=== PATIENT | female | born 1955 | race Hispanic/Latino ===

== ENCOUNTER 2020-05-07 09:40 | Inpatient (IN) | payer OTHER, SELFPAY ==
[~2020-05-07] VITALS: Ht 147.3 cm; Wt 82.2 kg
[2020-05-07 10:51] LABS: BASOPHILS % (AUTO) 0.2 % (0.0-5.0); HEMATOCRIT 40.7 % (36-48); LYMPHOCYTES % (AUTO) 5.9 % (21.0-51.0); MEAN CORPUSCULAR HEMOGLOBIN 29.9 pg (27.0-33.0); MEAN CORPUSCULAR HGB CONC 33.2 g/dL (32.0-36.0); MONOCYTES % (AUTO) 4.3 % (3.0-13.0); NEUTROPHILS % (AUTO) 88.6 % (40.0-77.0); PLATELET COUNT (AUTO) 255 K/uL (130-400); RED BLOOD CELL COUNT(AUTO) 4.52 MIL/uL (4.00-5.50); RED CELL DISTRIBUTION WIDTH 13.7 % (11.0-15.5)
[2020-05-07 10:57] LABS: APPEARANCE,URINE Clear (CLEAR); BILIRUBIN,URINE Negative (NEGATIVE); COLOR,URINE Yellow (YELLOW); GLUCOSE, URINE (UA) Negative (NEGATIVE); KETONES,URINE Negative (NEGATIVE); LEUKOCYTE ESTERASE ,URINE Negative (NEGATIVE); NITRATE,URINE Negative (NEGATIVE); OCCULT BLOOD,URINE Negative (NEGATIVE); PH,URINE 6.5 (5.0-8.0); PROTEIN,URINE Negative (NEGATIVE)
[2020-05-07 11:01] LABS: INR 0.89 (0.85-1.15); PROTHROMBIN TIME 9.7 SEC (9.6-11.6)
[2020-05-07 11:08] LABS: CARBON DIOXIDE 25 mmol/L (21-32); CHLORIDE 101 mmol/L (101-111); CREATININE 0.6 mg/dL (0.5-1.5); GLOMERULAR FILTR. RATE CALC 108 mL/min (>60); GLUCOSE,RANDOM 120 mg/dL (70-105); POTASSIUM 3.6 mmol/L (3.5-5.1); SODIUM SERUM 139 mmol/L (136-145); UREA NITROGEN, BLOOD 10 mg/dL (7-18)
[2020-05-07 11:22] LABS: ALANINE AMINOTRANSFERASE 41 U/L (12-78); ALBUMIN 3.1 g/dL (3.5-5.0); ASPARTATE AMINOTRANSFERASE 58 U/L (10-37); BILIRUBIN,TOTAL 0.7 mg/dL (0.2-1.0); CREATINE KINASE, TOTAL 365 U/L (21-232); MYOGLOBIN 79 ng/mL (10-92); TOTAL PROTEIN, SERUM 8.1 g/dL (6.0-8.3); TROPONIN I < 0.04 ng/mL (0.00-0.06)
[2020-05-07] MEDS ORDERED: DEXAMETHASONE SOD PHOSPHATE 10MG/ML 1ML VIAL ONE (12:08)
[2020-05-07] MEDS ORDERED: ALBUTEROL INHALER 90MCG/INH IH ONE (12:08)
[2020-05-07] MEDS ORDERED: AZITHROMYCIN 500MG+NS 250ML 250 ML IV ONE (12:09)
[2020-05-07] MEDS ORDERED: CEFTRIAXONE SODIUM 1 GM ONE (12:09)
[2020-05-07] MEDS: CEFTRIAXONE SODIUM 1 GM IVP SCH (13:00)
[2020-05-07] MEDS ORDERED: DOXYCYCLINE 100MG+NS 250ML IV SCH (13:00)
[2020-05-07] MEDS ORDERED: ACETAMINOPHEN 325 MG TAB PO PRN ×2 (13:15)
[2020-05-07 13:47] LABS: ABG BASE EXCESS -2.1 mmol/L (-2.0-3.0); ABG HCO3 21.8 mmol/L (21.0-28.0); ABG OXYGEN SATURATION 90.6 % (95.0-99.0); ABG PCO2 35 mmHg (32-45)
[2020-05-07] MEDS ORDERED: METHYLPREDNISOLONE SOD SUCC 40MG/ML 1ML IVP SCH (14:00)
[2020-05-07] MEDS ORDERED: IOHEXOL-350 75 ML VIAL IV ONE (14:15)
[2020-05-07] MEDS ORDERED: HYDRALAZINE HCL 20 MG/ML VIAL IV PRN ×2 (16:00→17:00)
[2020-05-07] MEDS ORDERED: ONDANSETRON HCL 4 MG/2 ML VIAL IVP PRN ×2 (16:00→17:00)
[2020-05-07] MEDS ORDERED: ERGOCALCIFEROL (VITAMIN D2) 50,000 UNIT CAPSULE PO ONE (17:00)
[2020-05-07] MEDS ORDERED: LOPERAMIDE 1 MG/7.5 ML UDCUP PO PRN (17:00)
[2020-05-07] MEDS ORDERED: FUROSEMIDE 10 MG/ML 10ML VIAL IVP SCH (21:00)
[2020-05-07] MEDS ORDERED: METHYLPREDNISOLONE SOD SUCC 40MG/ML 1ML ONE (23:03)
[2020-05-07] MEDS ORDERED: ENOXAPARIN SODIUM 60 MG/0.6 ML SQ ONE (23:03)
[2020-05-07] MEDS ORDERED: ERGOCALCIFEROL (VITAMIN D2) 50,000 UNIT CAPSULE ONE (23:03)
[2020-05-07] MEDS ORDERED: ASCORBIC ACID 500 MG TAB ONE (23:03)
[2020-05-07] MEDS ORDERED: FAMOTIDINE/PF 20 MG/2 ML VIAL IV ONE (23:04)
[2020-05-07] MEDS ORDERED: DOXYCYCLINE 100MG+NS 250ML 250 ML IV ONE (23:04)
[2020-05-07] MEDS ORDERED: ZINC SULFATE 220 CAPSULE ONE (23:04)
[2020-05-08] MEDS: CEFTRIAXONE SODIUM 1 GM IVP SCH ×2 (01:00→13:00)
[2020-05-08] MEDS ORDERED: FUROSEMIDE 10 MG/ML 4ML VIAL ONE ×3 (01:18→20:40)
[2020-05-08 03:44] LABS: ABG BASE EXCESS -0.3 mmol/L (-2.0-3.0); ABG HCO3 23.7 mmol/L (21.0-28.0); ABG OXYGEN SATURATION 83.1 % (95.0-99.0); ABG PCO2 37 mmHg (32-45)
[2020-05-08 05:20] LABS: BASOPHILS % (AUTO) 0.1 % (0.0-5.0); HEMATOCRIT 39.8 % (36-48); LYMPHOCYTES % (AUTO) 6.7 % (21.0-51.0); MEAN CORPUSCULAR HEMOGLOBIN 29.4 pg (27.0-33.0); MEAN CORPUSCULAR HGB CONC 32.4 g/dL (32.0-36.0); MEAN CORPUSCULAR VOLUME 90.7 fL (79-99); MONOCYTES % (AUTO) 3.1 % (3.0-13.0); NEUTROPHILS % (AUTO) 89.1 % (40.0-77.0); PLATELET COUNT (AUTO) 314 K/uL (130-400); RED BLOOD CELL COUNT(AUTO) 4.39 MIL/uL (4.00-5.50); RED CELL DISTRIBUTION WIDTH 13.8 % (11.0-15.5); WHITE BLOOD COUNT (AUTO) 8.7 K/uL (4.8-10.8)
[2020-05-08 06:53] LABS: ALANINE AMINOTRANSFERASE 41 U/L (12-78); ALBUMIN 2.9 g/dL (3.5-5.0); ASPARTATE AMINOTRANSFERASE 47 U/L (10-37); BILIRUBIN,DIRECT 0.1 mg/dL (0.0-0.3); BILIRUBIN,TOTAL 0.5 mg/dL (0.2-1.0); CARBON DIOXIDE 28 mmol/L (21-32); CHLORIDE 106 mmol/L (101-111); CREATININE 0.8 mg/dL (0.5-1.5); GLOMERULAR FILTR. RATE CALC 77 mL/min (>60); GLUCOSE,RANDOM 179 mg/dL (70-105); LACTATE DEHYDROGENASE 505 U/L (81-234); LIPASE 199 U/L (114-286); PHOSPHORUS 2.8 mg/dL (2.5-4.9); POTASSIUM 3.5 mmol/L (3.5-5.1); SODIUM SERUM 143 mmol/L (136-145); TOTAL PROTEIN, SERUM 7.7 g/dL (6.0-8.3); UREA NITROGEN, BLOOD 12 mg/dL (7-18)
[2020-05-08] MEDS ORDERED: ENOXAPARIN SODIUM 60 MG/0.6 ML SQ ONE ×2 (08:06→20:40)
[2020-05-08] MEDS ORDERED: DEXAMETHASONE SOD PHOSPHATE 10MG/ML 1ML VIAL ONE (08:06)
[2020-05-08] MEDS ORDERED: ASCORBIC ACID 500 MG TAB ONE (08:06)
[2020-05-08] MEDS ORDERED: DOXYCYCLINE HYCLATE 100 MG TABLET PO ONE ×2 (08:06→20:40)
[2020-05-08] MEDS ORDERED: ZINC SULFATE 220 CAPSULE ONE (08:07)
[2020-05-08] MEDS ORDERED: CEFTRIAXONE SODIUM 1 GM ONE (08:07)
[2020-05-08] MEDS ORDERED: FAMOTIDINE/PF 20 MG/2 ML VIAL IV ONE ×3 (08:08→20:41)
[2020-05-08] MEDS: FAMOTIDINE/PF 20 MG/2 ML VIAL IV SCH ×2 (09:00→21:00)
[2020-05-08] MEDS: DOXYCYCLINE HYCLATE 100 MG TABLET PO SCH ×2 (09:00→21:00)
[2020-05-08] MEDS: ENOXAPARIN SODIUM 60 MG/0.6 ML SQ SCH ×2 (09:00→21:00)
[2020-05-08] MEDS: ZINC SULFATE 220 CAPSULE PO SCH (12:00)
--- NOTE | 2020-05-08 13:00 | NUR ---
NO ANSWER TO CALL FOR IA
[2020-05-08 20:00] VITALS: BP 172/96
[2020-05-08] MEDS ORDERED: LOSA50TA64 PO (20:36)
[2020-05-08] MEDS: FUROSEMIDE 10 MG/ML 4ML VIAL IVP SCH (21:00)
[2020-05-08 21:10] VITALS: BP 177/98
[2020-05-08] MEDS ORDERED: HYDRALAZINE HCL 20 MG/ML VIAL ONE (21:14)
--- NOTE | 2020-05-08 21:18 | NUR ---
Re: BP 177/98 Hydralazine 10mg IV given for BP 177/98, pt was asymptomatic, claimed takes Losartan 50mg daily as her home medication. Pt made aware we will notify MD in AM if we can resume such medication.
[2020-05-08] MEDS ORDERED: LOSARTAN 50 MG TABLET ONE (21:36)
--- NOTE | 2020-05-08 21:36 | NUR ---
Re: Home Medication KAREN Campos noted rounding at this time, made aware of pt's current BP, aware Hydralazine 10mg IV was given, stated to resume home med, start tonight.
[2020-05-08 22:00] VITALS: BP 156/92
--- NOTE | 2020-05-08 22:00 | NUR ---
Latest BP 156/92
[2020-05-09] VITALS: BP 145/79
[2020-05-09] MEDS: CEFTRIAXONE SODIUM 1 GM IVP SCH ×2 (01:00→13:00)
[2020-05-09] MEDS ORDERED: CEFTRIAXONE SODIUM 1 GM ONE (01:29)
[2020-05-09 03:22] LABS: ABG BASE EXCESS 4.6 mmol/L (-2.0-3.0); ABG HCO3 28.1 mmol/L (21.0-28.0); ABG PCO2 38 mmHg (32-45)
[2020-05-09 04:00] VITALS: BP 164/87
[2020-05-09 05:20] LABS: BASOPHILS % (AUTO) 0.2 % (0.0-5.0); HEMATOCRIT 40.6 % (36-48); LYMPHOCYTES % (AUTO) 8.5 % (21.0-51.0); MEAN CORPUSCULAR HEMOGLOBIN 29.6 pg (27.0-33.0); MEAN CORPUSCULAR HGB CONC 32.5 g/dL (32.0-36.0); MONOCYTES % (AUTO) 4.1 % (3.0-13.0); NEUTROPHILS % (AUTO) 86.4 % (40.0-77.0); PLATELET COUNT (AUTO) 358 K/uL (130-400); RED BLOOD CELL COUNT(AUTO) 4.46 MIL/uL (4.00-5.50); RED CELL DISTRIBUTION WIDTH 13.9 % (11.0-15.5); WHITE BLOOD COUNT (AUTO) 13.3 K/uL (4.8-10.8)
[2020-05-09 05:54] LABS: ALANINE AMINOTRANSFERASE 36 U/L (12-78); ALBUMIN 2.8 g/dL (3.5-5.0); ASPARTATE AMINOTRANSFERASE 38 U/L (10-37); BILIRUBIN,TOTAL 0.6 mg/dL (0.2-1.0); CARBON DIOXIDE 29 mmol/L (21-32); CHLORIDE 104 mmol/L (101-111); CREATININE 0.7 mg/dL (0.5-1.5); GLOMERULAR FILTR. RATE CALC 90 mL/min (>60); GLUCOSE,RANDOM 127 mg/dL (70-105); LACTATE DEHYDROGENASE 483 U/L (81-234); SODIUM SERUM 143 mmol/L (136-145); TOTAL PROTEIN, SERUM 7.6 g/dL (6.0-8.3); UREA NITROGEN, BLOOD 26 mg/dL (7-18)
--- NOTE | 2020-05-09 08:30 | NUR ---
REPORT RECEIVED, PT. NOW TO ROOM 420 UNDER SERVICES OF .
[2020-05-09] MEDS ORDERED: POTASSIUM CHLORIDE 20MEQ/100ML 100 ML IV PRN ×2 (09:00→15:45)
[2020-05-09] MEDS: FUROSEMIDE 10 MG/ML 4ML VIAL IVP SCH ×3 (09:00→21:00)
[2020-05-09] MEDS: ENOXAPARIN SODIUM 60 MG/0.6 ML SQ SCH ×3 (09:00→21:00)
[2020-05-09] MEDS: DOXYCYCLINE HYCLATE 100 MG TABLET PO SCH ×3 (09:00→21:00)
[2020-05-09] MEDS: ASCORBIC ACID 500 MG TAB PO SCH ×2 (09:00→10:01)
[2020-05-09] MEDS: DEXAMETHASONE SOD PHOSPHATE 4 MG/ML 1ML VIAL IVP SCH ×2 (09:00→10:00)
[2020-05-09] MEDS ORDERED: LIDOCAINE HCL-MPF 1% 2ML VIAL IV PRN ×2 (09:00→15:45)
[2020-05-09] MEDS: FAMOTIDINE/PF 20 MG/2 ML VIAL IV SCH ×3 (09:00→21:00)
[2020-05-09] MEDS: LOSARTAN 50 MG TABLET PO SCH (10:01)
--- NOTE | 2020-05-09 10:30 | NUR ---
showing some resp distress at this time, placed on lt. states it helps some.
[2020-05-09 12:00] VITALS: BP 157/66
[2020-05-09] MEDS: ZINC SULFATE 220 CAPSULE PO SCH (12:00)
[2020-05-09] MEDS ORDERED: POTASSIUM CHLORIDE 10% ELIXIR 20 MEQ/15 ML UDCUP PO PRN (15:45)
[2020-05-09 16:00] VITALS: BP 144/96
--- NOTE | 2020-05-09 16:00 | NUR ---
sitting on side of bed, states feeling a litter and BREATHING A LITTLE EASIER.
[2020-05-09] MEDS: POTASSIUM CHLORIDE 10% ELIXIR 20 MEQ/15 ML UDCUP PO PRN (18:01)
--- NOTE | 2020-05-09 18:30 | NUR ---
RESTING AT THIS TIME, WILL ASK RESP. FOR EXTENSION FOR 022 SO PT, CAN MOVE AROUND IN ROOM.
[2020-05-09 18:37] LABS: ABG BASE EXCESS 2.8 mmol/L (-2.0-3.0); ABG HCO3 26.3 mmol/L (21.0-28.0); ABG PCO2 37 mmHg (32-45)
--- NOTE | 2020-05-09 19:11 | NUR ---
UNABLE TO REACH FAMILY SW attempted to contact patient's family to complete assessment but was only able to leave a message. SW will attempt to reach at a later time.
[2020-05-09 20:28] VITALS: BP 125/68
[2020-05-10 00:28] VITALS: BP 137/76
[2020-05-10] MEDS: CEFTRIAXONE SODIUM 1 GM IVP SCH ×2 (02:32→12:28)
[2020-05-10 04:28] VITALS: BP 124/70
[2020-05-10 07:11] LABS: BASOPHILS % (AUTO) 0.3 % (0.0-5.0); HEMATOCRIT 41.3 % (36-48); LYMPHOCYTES % (AUTO) 8.6 % (21.0-51.0); MEAN CORPUSCULAR HEMOGLOBIN 29.8 pg (27.0-33.0); MEAN CORPUSCULAR HGB CONC 32.9 g/dL (32.0-36.0); MEAN CORPUSCULAR VOLUME 90.6 fL (79-99); MONOCYTES % (AUTO) 3.4 % (3.0-13.0); PLATELET COUNT (AUTO) 357 K/uL (130-400); RED BLOOD CELL COUNT(AUTO) 4.56 MIL/uL (4.00-5.50); RED CELL DISTRIBUTION WIDTH 13.6 % (11.0-15.5); WHITE BLOOD COUNT (AUTO) 11.5 K/uL (4.8-10.8)
[2020-05-10 07:55] LABS: ALANINE AMINOTRANSFERASE 34 U/L (12-78); ALBUMIN 2.6 g/dL (3.5-5.0); ASPARTATE AMINOTRANSFERASE 38 U/L (10-37); BILIRUBIN,TOTAL 0.6 mg/dL (0.2-1.0); CARBON DIOXIDE 29 mmol/L (21-32); CHLORIDE 104 mmol/L (101-111); CREATININE 0.8 mg/dL (0.5-1.5); GLOMERULAR FILTR. RATE CALC 77 mL/min (>60); GLUCOSE,RANDOM 126 mg/dL (70-105); LACTATE DEHYDROGENASE 512 U/L (81-234); POTASSIUM 3.5 mmol/L (3.5-5.1); SODIUM SERUM 142 mmol/L (136-145); TOTAL PROTEIN, SERUM 7.3 g/dL (6.0-8.3); UREA NITROGEN, BLOOD 27 mg/dL (7-18)
[2020-05-10] MEDS: FUROSEMIDE 10 MG/ML 4ML VIAL IVP SCH ×2 (10:04→21:14)
[2020-05-10] MEDS: FAMOTIDINE/PF 20 MG/2 ML VIAL IV SCH ×2 (10:04→21:13)
[2020-05-10] MEDS: LOSARTAN 50 MG TABLET PO SCH (10:05)
[2020-05-10] MEDS: ASCORBIC ACID 500 MG TAB PO SCH (10:05)
[2020-05-10] MEDS: DOXYCYCLINE HYCLATE 100 MG TABLET PO SCH ×2 (10:05→21:14)
[2020-05-10] MEDS: POTASSIUM CHLORIDE 20 MEQ ERTAB PO PRN ×2 (10:06→12:28)
[2020-05-10] MEDS: DEXAMETHASONE SOD PHOSPHATE 4 MG/ML 1ML VIAL IVP SCH (10:06)
[2020-05-10] MEDS: ENOXAPARIN SODIUM 60 MG/0.6 ML SQ SCH ×2 (10:07→21:14)
[2020-05-10 12:00] VITALS: BP 127/62
[2020-05-10] MEDS: ZINC SULFATE 220 CAPSULE PO SCH (12:28)
[2020-05-10 16:00] VITALS: BP 135/68
--- NOTE | 2020-05-10 18:20 | NUR ---
INITIAL: Call placed to pts room, no answer. Call placed to SARIAH Ray(pts dtr). Prior to admission pt was living w her spouse. Pt is independent w ambulation and ADLs. She does not own any DME or receive services. Pt's spouse provides transportation where needed. Per Flor dcp is for pt to return home at sd. CM to continue to follow and wait for Md recommendations. Addendum: 05/10/20 at 1822 by MARIZA GROSS Amended: Links added.
[2020-05-10 19:20] VITALS: BP 137/77
[2020-05-10 23:34] VITALS: BP 132/74
[2020-05-11] MEDS: CEFTRIAXONE SODIUM 1 GM IVP SCH ×2 (00:40→12:00)
[2020-05-11 03:15] VITALS: BP 138/77
[2020-05-11] MEDS ORDERED: SODIUM CHLORIDE 0.9% 500ML 500 ML IV ONE (04:12)
[2020-05-11 04:58] LABS: HEMOGLOBIN A1C 6.8 % (4.0-6.0)
[2020-05-11 05:11] LABS: CREATININE 0.8 mg/dL (0.5-1.5); MAGNESIUM 2.1 mg/dL (1.80-2.40); POTASSIUM 3.9 mmol/L (3.5-5.1)
[2020-05-11 08:00] VITALS: BP 132/81
[2020-05-11] MEDS: ASCORBIC ACID 500 MG TAB PO SCH (08:38)
[2020-05-11] MEDS: FAMOTIDINE/PF 20 MG/2 ML VIAL IV SCH ×2 (08:38→22:41)
[2020-05-11] MEDS: LOSARTAN 50 MG TABLET PO SCH (08:39)
[2020-05-11] MEDS: DOXYCYCLINE HYCLATE 100 MG TABLET PO SCH ×2 (08:39→22:42)
[2020-05-11] MEDS: FUROSEMIDE 10 MG/ML 4ML VIAL IVP SCH ×2 (08:39→22:41)
[2020-05-11] MEDS: DEXAMETHASONE SOD PHOSPHATE 4 MG/ML 1ML VIAL IVP SCH (08:40)
[2020-05-11] MEDS: ENOXAPARIN SODIUM 60 MG/0.6 ML SQ SCH ×2 (08:40→22:42)
[2020-05-11 11:00] VITALS: BP 131/80
[2020-05-11 11:08] LABS: ABG HCO3 24.2 mmol/L (21.0-28.0); ABG OXYGEN SATURATION 95.9 % (95.0-99.0); ABG PCO2 35 mmHg (32-45)
[2020-05-11] MEDS: DEXAMETHASONE 4 MG TAB PO SCH (11:14)
[2020-05-11] MEDS: ZINC SULFATE 220 CAPSULE PO SCH (12:00)
[2020-05-11 16:39] VITALS: BP 127/77
[2020-05-11] MEDS ORDERED: PHARMACY COMMUNICATION MISC SCH ×2 (19:00→19:15)
[2020-05-11 21:45] VITALS: BP 136/74
[2020-05-12 00:05] VITALS: BP 128/85
[2020-05-12] MEDS: CEFTRIAXONE SODIUM 1 GM IVP SCH ×2 (01:00→12:33)
[2020-05-12 06:00] VITALS: BP 136/59
[2020-05-12 08:00] VITALS: BP 142/87
[2020-05-12] MEDS: FAMOTIDINE/PF 20 MG/2 ML VIAL IV SCH ×2 (08:48→21:18)
[2020-05-12] MEDS: DEXAMETHASONE 4 MG TAB PO SCH (08:48)
[2020-05-12] MEDS: DOXYCYCLINE HYCLATE 100 MG TABLET PO SCH ×2 (08:48→21:18)
[2020-05-12] MEDS: ASCORBIC ACID 500 MG TAB PO SCH (08:48)
[2020-05-12] MEDS: LOSARTAN 50 MG TABLET PO SCH (08:49)
[2020-05-12] MEDS: ENOXAPARIN SODIUM 60 MG/0.6 ML SQ SCH ×2 (08:49→21:18)
[2020-05-12] MEDS: FUROSEMIDE 10 MG/ML 4ML VIAL IVP SCH ×2 (08:49→21:18)
[2020-05-12] MEDS: ZINC SULFATE 220 CAPSULE PO SCH (12:33)
[2020-05-12 12:43] VITALS: BP 125/59
[2020-05-12 16:00] VITALS: BP 127/89
--- NOTE | 2020-05-12 16:46 | NUR ---
pt sitting up in bed eating dinner,pt denies distress while eating. sp02 92-94%.
[2020-05-12] MEDS ORDERED: REMDESIVIR (EUA) 520 200 MG in SODIUM CHLORIDE 0.9% 250 ML IV SCH (17:00)
[2020-05-12] MEDS: PHARMACY COMMUNICATION MISC SCH (17:19)
--- NOTE | 2020-05-12 17:29 | NUR ---
1710 remdesivir infusion started.
[2020-05-12 20:00] VITALS: BP 141/71
[2020-05-13 00:08] VITALS: BP 136/75
[2020-05-13] MEDS: PHARMACY COMMUNICATION MISC SCH ×3 (00:31→17:30)
[2020-05-13] MEDS: CEFTRIAXONE SODIUM 1 GM IVP SCH ×2 (00:53→13:29)
[2020-05-13 04:17] VITALS: BP 135/71
[2020-05-13] MEDS: DOXYCYCLINE HYCLATE 100 MG TABLET PO SCH ×2 (07:55→21:10)
[2020-05-13] MEDS: ASCORBIC ACID 500 MG TAB PO SCH (07:55)
[2020-05-13] MEDS: LOSARTAN 50 MG TABLET PO SCH (07:55)
[2020-05-13] MEDS: FAMOTIDINE/PF 20 MG/2 ML VIAL IV SCH ×2 (07:55→21:10)
[2020-05-13] MEDS: DEXAMETHASONE 4 MG TAB PO SCH (07:56)
[2020-05-13] MEDS: FUROSEMIDE 10 MG/ML 4ML VIAL IVP SCH ×2 (07:56→21:10)
[2020-05-13] MEDS: ENOXAPARIN SODIUM 60 MG/0.6 ML SQ SCH ×2 (07:57→21:11)
[2020-05-13 08:00] VITALS: BP 131/97
[2020-05-13 12:00] VITALS: BP 121/63
[2020-05-13] MEDS ORDERED: COMPOUND IV REFRIGERATED 1 EACH IVSOLN MISC PRN (12:00)
[2020-05-13] MEDS: ZINC SULFATE 220 CAPSULE PO SCH (13:29)
[2020-05-13 16:00] VITALS: BP 99/52
[2020-05-13] MEDS: REMDESIVIR (EUA) 520 100 MG in SODIUM CHLORIDE 0.9% 250 ML IV SCH (17:30)
[2020-05-13 19:00] VITALS: BP 132/70
[2020-05-14] VITALS (7 sets, daily range): BP systolic 120–149; BP diastolic 70–81
[2020-05-14] MEDS: PHARMACY COMMUNICATION MISC SCH (01:00)
[2020-05-14] MEDS: CEFTRIAXONE SODIUM 1 GM IVP SCH (01:43)
[2020-05-14 05:21] LABS: ABG BASE EXCESS 4.5 mmol/L (-2.0-3.0); ABG HCO3 29.1 mmol/L (21.0-28.0); ABG OXYGEN SATURATION 91.4 % (95.0-99.0); ABG PCO2 43 mmHg (32-45)
[2020-05-14 06:35] LABS: HEMATOCRIT 41.9 % (36-48); MEAN CORPUSCULAR HEMOGLOBIN 29.8 pg (27.0-33.0); MEAN CORPUSCULAR HGB CONC 33.2 g/dL (32.0-36.0); MEAN CORPUSCULAR VOLUME 89.9 fL (79-99); PLATELET COUNT (AUTO) 399 K/uL (130-400); RED BLOOD CELL COUNT(AUTO) 4.66 MIL/uL (4.00-5.50); RED CELL DISTRIBUTION WIDTH 13.2 % (11.0-15.5); WHITE BLOOD COUNT (AUTO) 14.1 K/uL (4.8-10.8)
[2020-05-14 06:48] LABS: ALBUMIN 2.3 g/dL (3.5-5.0); BILIRUBIN,DIRECT 0.1 mg/dL (0.0-0.3); BILIRUBIN,TOTAL 0.6 mg/dL (0.2-1.0); CREATININE 0.9 mg/dL (0.5-1.5); MAGNESIUM 2.1 mg/dL (1.80-2.40); TOTAL PROTEIN, SERUM 7.1 g/dL (6.0-8.3)
[2020-05-14 06:56] LABS: POTASSIUM 2.9 mmol/L (3.5-5.1)
[2020-05-14 08:09] LABS: LYMPHOCYTES % (MANUAL) 4 % (22-44); MAN.DIFF COMMENT-IMPRESSION MANUAL DIFFERENTIAL; PLATELET MORPHOLOGY COMMENT ADEQUATE; SEGMENTED NEUTROPHILS % 96 % (40-70)
[2020-05-14] MEDS: DEXAMETHASONE 4 MG TAB PO SCH (08:34)
[2020-05-14] MEDS: ASCORBIC ACID 500 MG TAB PO SCH (08:34)
[2020-05-14] MEDS: ZINC SULFATE 220 CAPSULE PO SCH (08:34)
[2020-05-14] MEDS: POTASSIUM CHLORIDE 20 MEQ ERTAB PO PRN (08:34)
[2020-05-14] MEDS: POTASSIUM CHLORIDE 10% ELIXIR 20 MEQ/15 ML UDCUP PO PRN ×2 (08:35→11:52)
[2020-05-14] MEDS: FUROSEMIDE 10 MG/ML 4ML VIAL IVP SCH (08:35)
[2020-05-14] MEDS: LOSARTAN 50 MG TABLET PO SCH (08:35)
[2020-05-14] MEDS: FAMOTIDINE/PF 20 MG/2 ML VIAL IV SCH ×2 (08:35→21:22)
[2020-05-14] MEDS: DOXYCYCLINE HYCLATE 100 MG TABLET PO SCH ×2 (08:35→21:23)
[2020-05-14] MEDS: ENOXAPARIN SODIUM 60 MG/0.6 ML SQ SCH ×2 (08:36→21:23)
[2020-05-14] MEDS: REMDESIVIR (EUA) 520 100 MG in SODIUM CHLORIDE 0.9% 250 ML IV SCH (17:00)
--- NOTE | 2020-05-14 17:03 | NUR ---
Nutrition Note; RD screened LOS x7. Pt admitted with acute resp. failure and was positive for Covidon. He is on a [facility] diet with good intake of 100%, noted. LBM 05/14. continue with current diet of [facility]. Add Promod 30ml BID for added protein supplementation Vit D 1000IU daily Addendum: 05/14/20 at [address] Amended: Links added.
[2020-05-15] MEDS: PHARMACY COMMUNICATION MISC SCH ×3 (01:00→17:00)
[2020-05-15 03:41] LABS: ABG BASE EXCESS 1.4 mmol/L (-2.0-3.0); ABG HCO3 25.7 mmol/L (21.0-28.0); ABG OXYGEN SATURATION 88.8 % (95.0-99.0); ABG PCO2 40 mmHg (32-45)
[2020-05-15 06:32] VITALS: BP 118/61
[2020-05-15 07:29] LABS: BASOPHILS % (AUTO) 0.1 % (0.0-5.0); EOSINOPHILS % (AUTO) 0.2 % (0.0-8.0); HEMATOCRIT 41.6 % (36-48); LYMPHOCYTES % (AUTO) 6.3 % (21.0-51.0); MEAN CORPUSCULAR HEMOGLOBIN 29.2 pg (27.0-33.0); MEAN CORPUSCULAR VOLUME 91.2 fL (79-99); MONOCYTES % (AUTO) 3.2 % (3.0-13.0); NEUTROPHILS % (AUTO) 88.5 % (40.0-77.0); PLATELET COUNT (AUTO) 367 K/uL (130-400); RED BLOOD CELL COUNT(AUTO) 4.56 MIL/uL (4.00-5.50); RED CELL DISTRIBUTION WIDTH 13.6 % (11.0-15.5); WHITE BLOOD COUNT (AUTO) 16.1 K/uL (4.8-10.8)
[2020-05-15 08:00] VITALS: BP 151/70
[2020-05-15 08:08] LABS: ALBUMIN 2.3 g/dL (3.5-5.0); BILIRUBIN,DIRECT 0.1 mg/dL (0.0-0.3); BILIRUBIN,TOTAL 0.7 mg/dL (0.2-1.0); CREATININE 0.8 mg/dL (0.5-1.5); MAGNESIUM 2.4 mg/dL (1.80-2.40); PHOSPHORUS 3.1 mg/dL (2.5-4.9); POTASSIUM 4.2 mmol/L (3.5-5.1)
[2020-05-15] MEDS: LOSARTAN 50 MG TABLET PO SCH (09:40)
[2020-05-15] MEDS: ZINC SULFATE 220 CAPSULE PO SCH (09:40)
[2020-05-15] MEDS: DOXYCYCLINE HYCLATE 100 MG TABLET PO SCH (09:40)
[2020-05-15] MEDS: FAMOTIDINE/PF 20 MG/2 ML VIAL IV SCH ×2 (09:40→20:10)
[2020-05-15] MEDS: ENOXAPARIN SODIUM 60 MG/0.6 ML SQ SCH ×2 (09:40→20:11)
[2020-05-15] MEDS: DEXAMETHASONE 4 MG TAB PO SCH (09:41)
[2020-05-15] MEDS: ASCORBIC ACID 500 MG TAB PO SCH (09:41)
[2020-05-15 11:00] VITALS: BP 136/83
[2020-05-15] MEDS: REMDESIVIR (EUA) 520 100 MG in SODIUM CHLORIDE 0.9% 250 ML IV SCH (15:07)
[2020-05-15 16:00] VITALS: BP 127/71
[2020-05-15 20:00] VITALS: BP 122/76
[2020-05-15 23:50] VITALS: BP 117/66
[2020-05-16] MEDS: PHARMACY COMMUNICATION MISC SCH ×3 (01:00→17:00)
[2020-05-16 04:00] VITALS: BP 136/68
[2020-05-16 04:00] LABS: ABG BASE EXCESS 3.6 mmol/L (-2.0-3.0); ABG HCO3 28.4 mmol/L (21.0-28.0); ABG OXYGEN SATURATION 83.1 % (95.0-99.0); ABG PCO2 44 mmHg (32-45)
[2020-05-16 06:02] LABS: BASOPHILS % (AUTO) 0.1 % (0.0-5.0); EOSINOPHILS % (AUTO) 0.2 % (0.0-8.0); HEMATOCRIT 40.2 % (36-48); LYMPHOCYTES % (AUTO) 6.8 % (21.0-51.0); MEAN CORPUSCULAR HEMOGLOBIN 29.3 pg (27.0-33.0); MEAN CORPUSCULAR HGB CONC 32.3 g/dL (32.0-36.0); MEAN CORPUSCULAR VOLUME 90.5 fL (79-99); MONOCYTES % (AUTO) 2.8 % (3.0-13.0); NEUTROPHILS % (AUTO) 88.8 % (40.0-77.0); PLATELET COUNT (AUTO) 298 K/uL (130-400); RED BLOOD CELL COUNT(AUTO) 4.44 MIL/uL (4.00-5.50); RED CELL DISTRIBUTION WIDTH 13.5 % (11.0-15.5); WHITE BLOOD COUNT (AUTO) 13.6 K/uL (4.8-10.8)
[2020-05-16 06:53] LABS: BILIRUBIN,TOTAL 0.6 mg/dL (0.2-1.0); CREATININE 0.8 mg/dL (0.5-1.5); POTASSIUM 4.1 mmol/L (3.5-5.1); TOTAL PROTEIN, SERUM 6.3 g/dL (6.0-8.3)
[2020-05-16 08:00] VITALS: BP 129/83
[2020-05-16] MEDS: DEXAMETHASONE 4 MG TAB PO SCH (08:50)
[2020-05-16] MEDS: FAMOTIDINE/PF 20 MG/2 ML VIAL IV SCH ×2 (08:50→21:00)
[2020-05-16] MEDS: ASCORBIC ACID 500 MG TAB PO SCH (08:50)
[2020-05-16] MEDS: LOSARTAN 50 MG TABLET PO SCH (08:50)
[2020-05-16] MEDS: ENOXAPARIN SODIUM 60 MG/0.6 ML SQ SCH ×2 (08:51→21:00)
[2020-05-16 11:00] VITALS: BP 131/68
[2020-05-16] MEDS: ZINC SULFATE 220 CAPSULE PO SCH (14:14)
[2020-05-16 15:00] VITALS: BP 114/72
[2020-05-16] MEDS: FUROSEMIDE 10 MG/ML 2ML VIAL IV SCH (17:31)
[2020-05-16] MEDS: REMDESIVIR (EUA) 520 100 MG in SODIUM CHLORIDE 0.9% 250 ML IV SCH (18:51)
[2020-05-16 21:44] VITALS: BP 118/73
[2020-05-17 00:29] VITALS: BP 118/93
[2020-05-17 04:06] VITALS: BP 149/68
[2020-05-17] MEDS: FUROSEMIDE 10 MG/ML 2ML VIAL IV SCH ×2 (04:17→16:23)
[2020-05-17 08:00] VITALS: BP 126/66
[2020-05-17] MEDS: ASCORBIC ACID 500 MG TAB PO SCH (08:31)
[2020-05-17] MEDS: DEXAMETHASONE 4 MG TAB PO SCH (08:31)
[2020-05-17] MEDS: ENOXAPARIN SODIUM 60 MG/0.6 ML SQ SCH ×2 (08:31→21:24)
[2020-05-17] MEDS: LOSARTAN 50 MG TABLET PO SCH (08:32)
[2020-05-17] MEDS: FAMOTIDINE/PF 20 MG/2 ML VIAL IV SCH ×2 (08:32→21:24)
[2020-05-17 08:50] LABS: ABG HCO3 24.1 mmol/L (21.0-28.0); ABG OXYGEN SATURATION 85.4 % (95.0-99.0); ABG PCO2 38 mmHg (32-45)
[2020-05-17] MEDS: ZINC SULFATE 220 CAPSULE PO SCH (11:30)
[2020-05-17 12:00] VITALS: BP 132/72
[2020-05-17 16:00] VITALS: BP 131/70
[2020-05-17 21:25] VITALS: BP 143/91
[2020-05-18 03:51] VITALS: BP 143/91
[2020-05-18 03:53] VITALS: BP 135/73
[2020-05-18 03:58] LABS: ABG BASE EXCESS 2.7 mmol/L (-2.0-3.0); ABG HCO3 27.6 mmol/L (21.0-28.0); ABG OXYGEN SATURATION 89.1 % (95.0-99.0); ABG PCO2 44 mmHg (32-45)
[2020-05-18] MEDS: FUROSEMIDE 10 MG/ML 2ML VIAL IV SCH ×3 (04:00→22:54)
[2020-05-18 06:42] LABS: BASOPHILS % (AUTO) 0.1 % (0.0-5.0); EOSINOPHILS % (AUTO) 0.1 % (0.0-8.0); HEMATOCRIT 41.2 % (36-48); LYMPHOCYTES % (AUTO) 8.1 % (21.0-51.0); MEAN CORPUSCULAR HEMOGLOBIN 29.3 pg (27.0-33.0); MEAN CORPUSCULAR VOLUME 91.6 fL (79-99); MONOCYTES % (AUTO) 4.2 % (3.0-13.0); PLATELET COUNT (AUTO) 316 K/uL (130-400); RED CELL DISTRIBUTION WIDTH 13.4 % (11.0-15.5); WHITE BLOOD COUNT (AUTO) 14.4 K/uL (4.8-10.8)
[2020-05-18 06:58] LABS: ALBUMIN 2.1 g/dL (3.5-5.0); BILIRUBIN,DIRECT 0.1 mg/dL (0.0-0.3); BILIRUBIN,TOTAL 0.6 mg/dL (0.2-1.0); CREATININE 0.7 mg/dL (0.5-1.5); POTASSIUM 4.3 mmol/L (3.5-5.1); TOTAL PROTEIN, SERUM 6.2 g/dL (6.0-8.3)
[2020-05-18 08:00] VITALS: BP 142/76
[2020-05-18] MEDS: LOSARTAN 50 MG TABLET PO SCH (08:19)
[2020-05-18] MEDS: FAMOTIDINE/PF 20 MG/2 ML VIAL IV SCH ×2 (08:19→21:25)
[2020-05-18] MEDS: ASCORBIC ACID 500 MG TAB PO SCH (08:20)
[2020-05-18] MEDS: ENOXAPARIN SODIUM 60 MG/0.6 ML SQ SCH ×2 (08:20→21:26)
[2020-05-18] MEDS: DEXAMETHASONE 4 MG TAB PO SCH (08:20)
[2020-05-18 12:00] VITALS: BP 119/53
[2020-05-18] MEDS: ZINC SULFATE 220 CAPSULE PO SCH (12:22)
[2020-05-18 16:00] VITALS: BP 104/73
[2020-05-18 19:30] VITALS: BP 121/69
[2020-05-19 00:53] VITALS: BP 108/65
[2020-05-19 03:49] LABS: ABG BASE EXCESS 4.3 mmol/L (-2.0-3.0); ABG HCO3 28.1 mmol/L (21.0-28.0); ABG OXYGEN SATURATION 90.5 % (95.0-99.0); ABG PCO2 39 mmHg (32-45)
[2020-05-19] MEDS: FUROSEMIDE 10 MG/ML 2ML VIAL IV SCH ×4 (04:48→23:00)
[2020-05-19 06:09] VITALS: BP 114/62
[2020-05-19 06:35] LABS: BASOPHILS % (AUTO) 0.2 % (0.0-5.0); EOSINOPHILS % (AUTO) 0.1 % (0.0-8.0); HEMATOCRIT 44.1 % (36-48); LYMPHOCYTES % (AUTO) 8.7 % (21.0-51.0); MEAN CORPUSCULAR HEMOGLOBIN 29.8 pg (27.0-33.0); MEAN CORPUSCULAR HGB CONC 32.7 g/dL (32.0-36.0); MEAN CORPUSCULAR VOLUME 91.1 fL (79-99); MONOCYTES % (AUTO) 3.9 % (3.0-13.0); NEUTROPHILS % (AUTO) 85.8 % (40.0-77.0); PLATELET COUNT (AUTO) 363 K/uL (130-400); RED BLOOD CELL COUNT(AUTO) 4.84 MIL/uL (4.00-5.50); RED CELL DISTRIBUTION WIDTH 13.4 % (11.0-15.5); WHITE BLOOD COUNT (AUTO) 13.7 K/uL (4.8-10.8)
[2020-05-19 06:52] LABS: ALANINE AMINOTRANSFERASE 22 U/L (12-78); ALBUMIN 2.4 g/dL (3.5-5.0); ASPARTATE AMINOTRANSFERASE 22 U/L (10-37); BILIRUBIN,DIRECT 0.1 mg/dL (0.0-0.3); BILIRUBIN,TOTAL 0.7 mg/dL (0.2-1.0); CARBON DIOXIDE 34 mmol/L (21-32); CHLORIDE 99 mmol/L (101-111); CREATININE 0.9 mg/dL (0.5-1.5); GLOMERULAR FILTR. RATE CALC 67 mL/min (>60); GLUCOSE,RANDOM 124 mg/dL (70-105); PHOSPHORUS 3.5 mg/dL (2.5-4.9); POTASSIUM 3.4 mmol/L (3.5-5.1); SODIUM SERUM 137 mmol/L (136-145); TOTAL PROTEIN, SERUM 6.8 g/dL (6.0-8.3); UREA NITROGEN, BLOOD 27 mg/dL (7-18)
[2020-05-19 08:00] VITALS: BP 164/85
[2020-05-19] MEDS: ASCORBIC ACID 500 MG TAB PO SCH (08:32)
[2020-05-19] MEDS: FAMOTIDINE/PF 20 MG/2 ML VIAL IV SCH ×2 (08:32→21:53)
[2020-05-19] MEDS: DEXAMETHASONE 4 MG TAB PO SCH (08:32)
[2020-05-19] MEDS: LOSARTAN 50 MG TABLET PO SCH (08:32)
[2020-05-19] MEDS: ENOXAPARIN SODIUM 60 MG/0.6 ML SQ SCH ×2 (08:33→21:53)
[2020-05-19 12:03] VITALS: BP 126/63
[2020-05-19] MEDS: ZINC SULFATE 220 CAPSULE PO SCH (15:02)
[2020-05-19 16:00] VITALS: BP 129/76
[2020-05-19 19:30] VITALS: BP 145/67
[2020-05-20] VITALS: BP 124/75
[2020-05-20 04:00] VITALS: BP 133/63
[2020-05-20] MEDS: FUROSEMIDE 10 MG/ML 2ML VIAL IV SCH ×4 (05:45→22:48)
[2020-05-20 08:00] VITALS: BP 138/82
[2020-05-20] MEDS: ASCORBIC ACID 500 MG TAB PO SCH (08:54)
[2020-05-20] MEDS: DEXAMETHASONE 4 MG TAB PO SCH (08:55)
[2020-05-20] MEDS: FAMOTIDINE/PF 20 MG/2 ML VIAL IV SCH ×2 (08:55→20:09)
[2020-05-20] MEDS: LOSARTAN 50 MG TABLET PO SCH (08:55)
[2020-05-20] MEDS: ENOXAPARIN SODIUM 60 MG/0.6 ML SQ SCH ×2 (08:56→20:09)
[2020-05-20] MEDS: ZINC SULFATE 220 CAPSULE PO SCH (11:03)
[2020-05-20] MEDS: POTASSIUM CHLORIDE 20 MEQ ERTAB PO PRN ×2 (11:04→17:38)
--- NOTE | 2020-05-20 11:25 | NUR ---
MEDS TAKEN WITHOUT ISSUE, PT DENIES PAIN THIS MORNING. PT ENCOURAGED TO PRONE WITH HIFLOW @60L AND NON-REBREATHER AT 15L
[2020-05-20 12:24] VITALS: BP 113/58
[2020-05-20 17:37] VITALS: BP 116/59
[2020-05-20 20:48] VITALS: BP 153/81
[2020-05-21] VITALS (7 sets, daily range): BP systolic 92–149; BP diastolic 50–85
--- NOTE | 2020-05-21 04:08 | NUR ---
Assessment Patient was having a hard time breathing about 30 minutes ago & was desating to the high 70s low 80s on High Flow @60 LPM with 100% FiO2 and a Non-rebreather 15 LPM. She was placed in prone position & respiratory was called. Now her O2 sats are ranging between 88%-91%. She stated that she is comfortable now showing no S/S of distress. Vitals are stable & she is being closely monitored.
[2020-05-21] MEDS: FUROSEMIDE 10 MG/ML 2ML VIAL IV SCH ×4 (05:26→22:56)
[2020-05-21 07:13] LABS: HEMATOCRIT 44.8 % (36-48); MEAN CORPUSCULAR HEMOGLOBIN 29.6 pg (27.0-33.0); MEAN CORPUSCULAR HGB CONC 33.3 g/dL (32.0-36.0); MEAN CORPUSCULAR VOLUME 88.9 fL (79-99); RED BLOOD CELL COUNT(AUTO) 5.04 MIL/uL (4.00-5.50); RED CELL DISTRIBUTION WIDTH 13.4 % (11.0-15.5); WHITE BLOOD COUNT (AUTO) 16.3 K/uL (4.8-10.8)
[2020-05-21 07:29] LABS: CREATININE 0.9 mg/dL (0.5-1.5); POTASSIUM 3.6 mmol/L (3.5-5.1)
[2020-05-21] MEDS: LOSARTAN 50 MG TABLET PO SCH (09:01)
[2020-05-21] MEDS: FAMOTIDINE/PF 20 MG/2 ML VIAL IV SCH ×2 (09:01→20:56)
[2020-05-21] MEDS: ASCORBIC ACID 500 MG TAB PO SCH (09:01)
[2020-05-21] MEDS: DEXAMETHASONE 4 MG TAB PO SCH (09:01)
[2020-05-21] MEDS: ENOXAPARIN SODIUM 60 MG/0.6 ML SQ SCH ×2 (09:02→20:58)
[2020-05-21] MEDS: ZINC SULFATE 220 CAPSULE PO SCH (12:02)
--- NOTE | 2020-05-21 14:34 | NUR ---
RT ABLE TO WEAN PT DOWN TO 50% ON HIFLOW OXYGEN WITH NRB AT 15l.
[2020-05-22] VITALS (15 sets, daily range): BP systolic 91–157; BP diastolic 52–96
--- NOTE | 2020-05-22 00:45 | NUR ---
Decreased oxygen saturation Patient went to spit and removed her masked. Her oxygen saturation level dereased to 82-83%. Respiratory was in previously and oxygen saturation was at 93%. Repositioned patient on her left side, with pillows propped behind her. She denies any c/o's pain. Oxygen saturation is starting to come up some, 86-87%. Will continue to monitor for any further decline this shift.
--- NOTE | 2020-05-22 01:09 | NUR ---
Oxygen saturation improving Patient's oxygen saturation is now between. 89-91%. She is tolerating lying on her side well. eyes open and reported no discomfort at this time.
[2020-05-22 04:33] LABS: ABG BASE EXCESS 7.1 mmol/L (-2.0-3.0); ABG HCO3 31.9 mmol/L (21.0-28.0); ABG OXYGEN SATURATION 87.9 % (95.0-99.0); ABG PCO2 46 mmHg (32-45)
[2020-05-22] MEDS: FUROSEMIDE 10 MG/ML 2ML VIAL IV SCH ×4 (05:28→23:07)
--- NOTE | 2020-05-22 05:36 | NUR ---
ABG Results Respiratory did ABG gases on patient and there are noted changes from the previous gases on 05/17/2020. Dr. Rodarte was paged x 2 and awaiting on a return call to share ABG gases from this am. Patient's oxygen saturation is between 89-91%. No acute distress noted at this time. Patient is talking and in good spirits, at the moment. Denies any problems or pain at present.
[2020-05-22 05:49] LABS: BASOPHILS % (AUTO) 0.1 % (0.0-5.0); EOSINOPHILS % (AUTO) 0.3 % (0.0-8.0); LYMPHOCYTES % (AUTO) 9.6 % (21.0-51.0); MEAN CORPUSCULAR HEMOGLOBIN 29.7 pg (27.0-33.0); MEAN CORPUSCULAR HGB CONC 33.3 g/dL (32.0-36.0); MEAN CORPUSCULAR VOLUME 89.2 fL (79-99); MONOCYTES % (AUTO) 4.7 % (3.0-13.0); NEUTROPHILS % (AUTO) 84.1 % (40.0-77.0); PLATELET COUNT (AUTO) 302 K/uL (130-400); RED BLOOD CELL COUNT(AUTO) 4.82 MIL/uL (4.00-5.50); RED CELL DISTRIBUTION WIDTH 13.6 % (11.0-15.5)
[2020-05-22 06:10] LABS: PLATELET MORPHOLOGY PLT CLUMPS PRESENT
[2020-05-22 06:20] LABS: ALBUMIN 2.4 g/dL (3.5-5.0); BILIRUBIN,TOTAL 0.7 mg/dL (0.2-1.0); CREATININE 0.8 mg/dL (0.5-1.5); MAGNESIUM 2.5 mg/dL (1.80-2.40); PHOSPHORUS 3.7 mg/dL (2.5-4.9); POTASSIUM 3.5 mmol/L (3.5-5.1); TOTAL PROTEIN, SERUM 6.6 g/dL (6.0-8.3)
--- NOTE | 2020-05-22 06:49 | NUR ---
Rapid Response Called on patient Patient's Bipap machine was going off and a nurse entered the room to check on patient. Her oxygen saturation pre87-45%, then dropped to 69%. Sat up in High Franklin's position. Her sat came up to 85%, but quickly desated again. She had oxygen saturation between 70-85. Nursing supervisor lump room, respiratory, sap grc security arrived to floor. Call was attempted to call the oncall provider. I stayed on the phone, until was connected with Evert Kim NP. Orders to transfer to ICU was given.
[2020-05-22] MEDS: LOSARTAN 50 MG TABLET PO SCH (09:21)
[2020-05-22] MEDS: FAMOTIDINE/PF 20 MG/2 ML VIAL IV SCH ×2 (09:21→21:23)
[2020-05-22] MEDS: ASCORBIC ACID 500 MG TAB PO SCH (09:21)
[2020-05-22] MEDS: DEXAMETHASONE 4 MG TAB PO SCH (09:21)
[2020-05-22] MEDS: ENOXAPARIN SODIUM 60 MG/0.6 ML SQ SCH ×2 (09:48→21:24)
--- NOTE | 2020-05-22 10:59 | NUR ---
report given to receiving nurse on second floor. RT and charge nurse to transport pt now, family updated.
[2020-05-22] MEDS: ZINC SULFATE 220 CAPSULE PO SCH (13:07)
[2020-05-22] MEDS: POTASSIUM CHLORIDE 10% ELIXIR 20 MEQ/15 ML UDCUP PO PRN (13:07)
[2020-05-22 19:59] LABS: ABG BASE EXCESS 5.1 mmol/L (-2.0-3.0); ABG HCO3 29.3 mmol/L (21.0-28.0); ABG OXYGEN SATURATION 90.7 % (95.0-99.0); ABG PCO2 41 mmHg (32-45)
[2020-05-23] VITALS (19 sets, daily range): BP systolic 105–137; BP diastolic 61–90
[2020-05-23] MEDS: FUROSEMIDE 10 MG/ML 2ML VIAL IV SCH ×4 (04:45→23:08)
[2020-05-23] MEDS: FAMOTIDINE/PF 20 MG/2 ML VIAL IV SCH ×2 (11:21→21:44)
[2020-05-23] MEDS: DEXAMETHASONE 4 MG TAB PO SCH (11:22)
[2020-05-23] MEDS: ASCORBIC ACID 500 MG TAB PO SCH (11:22)
[2020-05-23] MEDS: ENOXAPARIN SODIUM 60 MG/0.6 ML SQ SCH ×2 (11:24→21:45)
[2020-05-23] MEDS: ZINC SULFATE 220 CAPSULE PO SCH (11:25)
--- NOTE | 2020-05-23 12:19 | NUR ---
Spoke with Daughter Flor Kingston [phone] for update on mother. Pt Alert and Oreintated. resting comfortably in bed. Bipap in place patient tolerating BiPap well. Three calls to no resposnse. will cont to monitor
[2020-05-23] MEDS: LOSARTAN 50 MG TABLET PO SCH (12:46)
[2020-05-24] VITALS (13 sets, daily range): BP systolic 104–134; BP diastolic 63–88
[2020-05-24 04:37] LABS: HEMATOCRIT 45.1 % (36-48); MEAN CORPUSCULAR HEMOGLOBIN 29.6 pg (27.0-33.0); MEAN CORPUSCULAR HGB CONC 32.8 g/dL (32.0-36.0); MEAN CORPUSCULAR VOLUME 90.2 fL (79-99); RED CELL DISTRIBUTION WIDTH 13.8 % (11.0-15.5); WHITE BLOOD COUNT (AUTO) 17.9 K/uL (4.8-10.8)
[2020-05-24 04:40] LABS: ABG BASE EXCESS 6.1 mmol/L (-2.0-3.0); ABG HCO3 30.7 mmol/L (21.0-28.0); ABG OXYGEN SATURATION 89.9 % (95.0-99.0); ABG PCO2 44 mmHg (32-45)
[2020-05-24 04:54] LABS: INR 1.04 (0.85-1.15); PARTIAL THROMBOPLASTIN TIME 27.1 SEC (26.3-35.5); PROTHROMBIN TIME 11.2 SEC (9.6-11.6)
[2020-05-24] MEDS: FUROSEMIDE 10 MG/ML 2ML VIAL IV SCH ×4 (05:10→23:08)
[2020-05-24 06:27] LABS: ALANINE AMINOTRANSFERASE 27 U/L (12-78); ALBUMIN 2.7 g/dL (3.5-5.0); ASPARTATE AMINOTRANSFERASE 28 U/L (10-37); BILIRUBIN,TOTAL 0.9 mg/dL (0.2-1.0); CARBON DIOXIDE 30 mmol/L (21-32); CHLORIDE 100 mmol/L (101-111); CREATININE 1.1 mg/dL (0.5-1.5); GLOMERULAR FILTR. RATE CALC 53 mL/min (>60); GLUCOSE,RANDOM 148 mg/dL (70-105); PHOSPHORUS 4.3 mg/dL (2.5-4.9); POTASSIUM 3.4 mmol/L (3.5-5.1); SODIUM SERUM 141 mmol/L (136-145); THYROID STIMULATING HORMONE 1.54 uIU/mL (0.36-3.74); TOTAL PROTEIN, SERUM 6.9 g/dL (6.0-8.3); UREA NITROGEN, BLOOD 42 mg/dL (7-18)
[2020-05-24] MEDS: FAMOTIDINE/PF 20 MG/2 ML VIAL IV SCH ×2 (10:42→20:32)
[2020-05-24] MEDS: DEXAMETHASONE 4 MG TAB PO SCH (10:42)
[2020-05-24] MEDS: LOSARTAN 50 MG TABLET PO SCH (10:43)
[2020-05-24] MEDS: ASCORBIC ACID 500 MG TAB PO SCH (10:43)
[2020-05-24] MEDS: ENOXAPARIN SODIUM 60 MG/0.6 ML SQ SCH ×2 (10:44→20:31)
[2020-05-24] MEDS: ZINC SULFATE 220 CAPSULE PO SCH (18:23)
[2020-05-25] VITALS (22 sets, daily range): BP systolic 91–215; BP diastolic 52–126
[2020-05-25 04:36] LABS: HEMATOCRIT 45.5 % (36-48); MEAN CORPUSCULAR HEMOGLOBIN 29.4 pg (27.0-33.0); MEAN CORPUSCULAR HGB CONC 32.5 g/dL (32.0-36.0); MEAN CORPUSCULAR VOLUME 90.5 fL (79-99); RED BLOOD CELL COUNT(AUTO) 5.03 MIL/uL (4.00-5.50); WHITE BLOOD COUNT (AUTO) 18.5 K/uL (4.8-10.8)
[2020-05-25] MEDS: FUROSEMIDE 10 MG/ML 2ML VIAL IV SCH ×3 (05:00→23:00)
[2020-05-25 05:18] LABS: CREATININE 1.1 mg/dL (0.5-1.5); MAGNESIUM 2.9 mg/dL (1.80-2.40); PHOSPHORUS 4.4 mg/dL (2.5-4.9); POTASSIUM 3.1 mmol/L (3.5-5.1)
[2020-05-25] MEDS: FAMOTIDINE/PF 20 MG/2 ML VIAL IV SCH ×2 (10:00→22:12)
[2020-05-25] MEDS: ENOXAPARIN SODIUM 60 MG/0.6 ML SQ SCH ×2 (10:01→22:13)
[2020-05-25] MEDS: DEXAMETHASONE 4 MG TAB PO SCH (10:02)
[2020-05-25] MEDS: ASCORBIC ACID 500 MG TAB PO SCH (10:02)
[2020-05-25] MEDS: LOSARTAN 50 MG TABLET PO SCH (10:02)
[2020-05-25] MEDS ORDERED: METOPROLOL TARTRATE 25 MG TAB ONE (10:27)
[2020-05-25] MEDS: METOPROLOL TARTRATE 25 MG TAB PO SCH ×2 (11:24→21:00)
[2020-05-25] MEDS: LACTULOSE 20 GM/30 ML UDCUP PO PRN (11:25)
[2020-05-25] MEDS: ZINC SULFATE 220 CAPSULE PO SCH (11:25)
[2020-05-26] VITALS (21 sets, daily range): BP systolic 80–148; BP diastolic 42–95
[2020-05-26 03:55] LABS: BASOPHILS % (AUTO) 0.1 % (0.0-5.0); HEMATOCRIT 45.9 % (36-48); LYMPHOCYTES % (AUTO) 4.7 % (21.0-51.0); MEAN CORPUSCULAR HEMOGLOBIN 29.4 pg (27.0-33.0); MEAN CORPUSCULAR HGB CONC 32.2 g/dL (32.0-36.0); MEAN CORPUSCULAR VOLUME 91.1 fL (79-99); MONOCYTES % (AUTO) 3.9 % (3.0-13.0); NEUTROPHILS % (AUTO) 90.5 % (40.0-77.0); PLATELET COUNT (AUTO) 226 K/uL (130-400); RED BLOOD CELL COUNT(AUTO) 5.04 MIL/uL (4.00-5.50); RED CELL DISTRIBUTION WIDTH 14.2 % (11.0-15.5)
[2020-05-26 04:08] LABS: MAGNESIUM 3.3 mg/dL (1.80-2.40); PHOSPHORUS 5.7 mg/dL (2.5-4.9); POTASSIUM 3.2 mmol/L (3.5-5.1)
[2020-05-26] MEDS: FUROSEMIDE 10 MG/ML 2ML VIAL IV SCH ×5 (05:08→22:24)
[2020-05-26] MEDS: POTASSIUM CHLORIDE 10% ELIXIR 20 MEQ/15 ML UDCUP PO PRN ×3 (05:15→05:17)
[2020-05-26 07:23] LABS: ABG BASE EXCESS 4.6 mmol/L (-2.0-3.0); ABG HCO3 28.3 mmol/L (21.0-28.0); ABG OXYGEN SATURATION 95.6 % (95.0-99.0); ABG PCO2 39 mmHg (32-45)
[2020-05-26] MEDS: FAMOTIDINE/PF 20 MG/2 ML VIAL IV SCH ×2 (12:00→20:54)
[2020-05-26] MEDS: ASCORBIC ACID 500 MG TAB PO SCH (12:01)
[2020-05-26] MEDS: DEXAMETHASONE 4 MG TAB PO SCH (12:01)
[2020-05-26] MEDS: ZINC SULFATE 220 CAPSULE PO SCH (12:01)
[2020-05-26] MEDS: ENOXAPARIN SODIUM 60 MG/0.6 ML SQ SCH ×2 (12:08→20:54)
[2020-05-26] MEDS: METOPROLOL TARTRATE 25 MG TAB PO SCH ×2 (12:09→21:00)
[2020-05-26] MEDS: LOSARTAN 50 MG TABLET PO SCH (12:09)
[2020-05-26] MEDS ORDERED: HYDROMORPHONE HCL 0.5 MG/0.5 ML ML IVP PRN (16:45)
[2020-05-26] MEDS ORDERED: MAGNESIUM CITRATE 296 ML SOLUTION PO ONE (19:45)
[2020-05-27] VITALS (19 sets, daily range): BP systolic 72–116; BP diastolic 44–65
[2020-05-27 03:45] LABS: ABG BASE EXCESS -0.1 mmol/L (-2.0-3.0); ABG HCO3 23.8 mmol/L (21.0-28.0); ABG OXYGEN SATURATION 90.1 % (95.0-99.0); ABG PCO2 37 mmHg (32-45)
[2020-05-27 04:46] LABS: BASOPHILS % (AUTO) 0.2 % (0.0-5.0); HEMATOCRIT 48.6 % (36-48); LYMPHOCYTES % (AUTO) 3.6 % (21.0-51.0); MEAN CORPUSCULAR HEMOGLOBIN 29.9 pg (27.0-33.0); MEAN CORPUSCULAR HGB CONC 32.1 g/dL (32.0-36.0); MEAN CORPUSCULAR VOLUME 93.1 fL (79-99); MONOCYTES % (AUTO) 3.9 % (3.0-13.0); NEUTROPHILS % (AUTO) 91.1 % (40.0-77.0); PLATELET COUNT (AUTO) 218 K/uL (130-400); RED BLOOD CELL COUNT(AUTO) 5.22 MIL/uL (4.00-5.50); RED CELL DISTRIBUTION WIDTH 14.8 % (11.0-15.5); WHITE BLOOD COUNT (AUTO) 22.1 K/uL (4.8-10.8)
[2020-05-27] MEDS: FUROSEMIDE 10 MG/ML 2ML VIAL IV SCH (05:00)
[2020-05-27 05:05] LABS: ALBUMIN 2.8 g/dL (3.5-5.0); BILIRUBIN,TOTAL 0.8 mg/dL (0.2-1.0); CREATININE 3.8 mg/dL (0.5-1.5); MAGNESIUM 4.9 mg/dL (1.80-2.40); PHOSPHORUS 6.5 mg/dL (2.5-4.9); POTASSIUM 3.9 mmol/L (3.5-5.1)
[2020-05-27] MEDS: METOPROLOL TARTRATE 25 MG TAB PO SCH (08:02)
[2020-05-27] MEDS: LOSARTAN 50 MG TABLET PO SCH (09:00)
[2020-05-27] MEDS: FAMOTIDINE/PF 20 MG/2 ML VIAL IV SCH ×2 (09:18→20:25)
[2020-05-27] MEDS: DEXAMETHASONE 4 MG TAB PO SCH (09:19)
[2020-05-27] MEDS: ASCORBIC ACID 500 MG TAB PO SCH (09:19)
[2020-05-27] MEDS: ENOXAPARIN SODIUM 60 MG/0.6 ML SQ SCH ×2 (09:20→20:26)
--- NOTE | 2020-05-27 09:42 | NUR ---
PROGRESS NOTE Patient received alert and oriented x4. Patient hypotensive 92/62, in AFIB RVR up to 150s. shift boss RN reports that metoprolol has been held secondary to patients hypotension. Patient losartan and metroprolol held this morning due to hypotension. Patient reports abdominal pain and rectal pain. She states that her bowel movement can not come out. PRN Lactulose given for constipation, Nurse Practitioner notified, awaiting response. Will continue to monitor.
--- NOTE | 2020-05-27 10:18 | NUR ---
PROGRESS NOTE New orders given by ADILENE Holguin NP states she will contact MD Callahan for management of AFIB RVR since she can not take metoprolol secondary to her hypotension. Will follow up with PRODUCTION HELPER and continue to monitor patient.
[2020-05-27] MEDS: LACTULOSE 20 GM/30 ML UDCUP PO PRN (10:25)
[2020-05-27] MEDS ORDERED: BISACODYL 10 MG SUPP.RECT RC SCH (10:30)
[2020-05-27] MEDS: SODIUM CHLORIDE 0.9% 1000ML 1,000 ML IV SCH ×2 (11:22→20:25)
[2020-05-27] MEDS: ZINC SULFATE 220 CAPSULE PO SCH (11:23)
--- NOTE | 2020-05-27 12:41 | NUR ---
LOW BP Ms Olsen continues to be hypotensive, current bp , 75/55, heart rate 111. ADILENE Holguin contacted, new orders placed, will continue to monitor.
[2020-05-27 13:10] LABS: INR 1.06 (0.85-1.15); PROTHROMBIN TIME 11.4 SEC (9.6-11.6)
[2020-05-27] MEDS ORDERED: LACTATED RINGERS 1000ML IV SCH (16:45)
--- NOTE | 2020-05-27 19:00 | NUR ---
LOW URINE OUTPUT SUGAR PLANTATION MANAGER Ezio made aware of patients low urine output. Patient put out 80 ml of dark brown urine throughout 12 hour shift. SUGAR PLANTATION MANAGER ordered a LR bolus.
--- NOTE | 2020-05-27 23:00 | NUR ---
6FR 3 LUMEN PICC INSERTED TO LEFT BASILIC VEIN, USING ASEPTIC TECHNIQUE. SUCCESSFULLY INSERTED WITH 2 ATTEMPTS. CATHETER IS UNCUT WITH 45 CM INTERNAL AND 5CM EXTERNAL CATHETER. STERILE DRESSING APPLIED. ALL 3 LUMENS HAVE GOOD BLOOD RETURN, AND FLUSHED EASILY AND CLAMPED. ARM CIRCUMFERENCE IS 39CM. (+) BULLSEYE INDICATES PICC TIP IN LOWER 1/3 OF SVC AND OK TO USE PER PROTOCOL.
[2020-05-28] VITALS (82 sets, daily range): BP systolic 40–135; BP diastolic 22–76
[2020-05-28 04:16] LABS: BASOPHILS % (AUTO) 0.2 % (0.0-5.0); HEMATOCRIT 45.5 % (36-48); LYMPHOCYTES % (AUTO) 3.8 % (21.0-51.0); MEAN CORPUSCULAR HEMOGLOBIN 29.8 pg (27.0-33.0); MEAN CORPUSCULAR HGB CONC 31.6 g/dL (32.0-36.0); MONOCYTES % (AUTO) 4.2 % (3.0-13.0); NEUTROPHILS % (AUTO) 90.8 % (40.0-77.0); PLATELET COUNT (AUTO) 158 K/uL (130-400); RED BLOOD CELL COUNT(AUTO) 4.84 MIL/uL (4.00-5.50); RED CELL DISTRIBUTION WIDTH 15.1 % (11.0-15.5); WHITE BLOOD COUNT (AUTO) 21.6 K/uL (4.8-10.8)
[2020-05-28 04:32] LABS: ALBUMIN 2.3 g/dL (3.5-5.0); BILIRUBIN,TOTAL 0.8 mg/dL (0.2-1.0); CREATININE 3.2 mg/dL (0.5-1.5); MAGNESIUM 4.9 mg/dL (1.80-2.40); PHOSPHORUS 4.2 mg/dL (2.5-4.9); POTASSIUM 3.9 mmol/L (3.5-5.1); TOTAL PROTEIN, SERUM 6.1 g/dL (6.0-8.3)
[2020-05-28] MEDS: FAMOTIDINE/PF 20 MG/2 ML VIAL IV SCH ×2 (09:17→20:43)
[2020-05-28] MEDS: ENOXAPARIN SODIUM 60 MG/0.6 ML SQ SCH ×2 (09:21→20:45)
[2020-05-28] MEDS: LACTATED RINGERS 1000ML 1,000 ML IV SCH ×2 (09:22→15:15)
--- NOTE | 2020-05-28 10:42 | NUR ---
CHANGE OF STATUS Patient noted to be hypoxic down to 64% on BIPAP, patient proned. RT notified and states that she is on the highest BIPAP settings and next step would be intubation. Patient states that she DOES NOT WANT TO BE INTUBATED. RN called patients peyman Hernandez and Mary states that her mom has never wanted to be intubated. Daughter also states that she woould like to speak to her mom one more time to see if she would consider being intubated. HAND SCREEN PRINTER Ezio made aware and she states that she will call patients peyman.
--- NOTE | 2020-05-28 11:43 | NUR ---
PROGRESS NOTE Patient now wants to be intubated, will notifiy MACHINE JOINT CUTTER and anesthesia
[2020-05-28 11:50] LABS: ABG BASE EXCESS 0.3 mmol/L (-2.0-3.0); ABG HCO3 24.9 mmol/L (21.0-28.0); ABG OXYGEN SATURATION 85.3 % (95.0-99.0); ABG PCO2 40 mmHg (32-45)
[2020-05-28] MEDS ORDERED: PROPOFOL 1000 MG/100 ML 100 ML IV ONE (12:06)
[2020-05-28] MEDS ORDERED: FENTANYL 2500MCG+NS 250ML 250 ML IV ONE (12:36)
--- NOTE | 2020-05-28 14:53 | NUR ---
UPDATE Patient intubated @ 1215 for low sats , Patient requested intubation. Size 7.5 ETT, 21 @ the lip. Patient initially desaturated but when she was adequately sedated sats went up. Currently comfortable. Will continue to monitor.
--- NOTE | 2020-05-28 15:08 | NUR ---
SS Referral/Code Status Discussed SS referral with Abe Holguin NP. Per Kasie, "patient was first agreeable to DNR and then changed her mind after a conversation with a friend". Order received to cancel SS order for code status.
--- NOTE | 2020-05-28 15:18 | NUR ---
RD FOLLOW UP - TUBE FEEDING Recommend initiate continuous tube feeding Nepro initiated at 15mls/hr. Goal rate of 35mls/hr. Recommend flushes at 120 Q4hrs. Recommendations faxed to 2B ([phone]), RN notified. RD NOTE Pt agreed to intubation. NGT in place. WBC 21.6, BUN 103, Cr 3.2, GFR 16, BG 144. RD to continue to monitor. Please notify as additional nutrition concerns arise. Thank you.
[2020-05-28] MEDS: MIDAZOLAM 100MG-0.9% NS 100ML 100ML BAG IV SCH ×2 (16:02→23:02)
[2020-05-28] MEDS: NOREPINEPHRINE 4MG/NS 250ML 250 ML IV SCH ×2 (20:31→23:02)
[2020-05-28] MEDS: FENTANYL 2500MCG+NS 250ML 250 ML IV SCH (23:02)
[2020-05-29] VITALS (94 sets, daily range): BP systolic 54–173; BP diastolic 12–84
[2020-05-29] MEDS: LACTATED RINGERS 1000ML 1,000 ML IV SCH ×4 (00:59→19:58)
--- NOTE | 2020-05-29 01:07 | NUR ---
LOW SATURATION PATIENT HAS LOW OXYGEN SATURATIONS DOWN TO 70 PERCENT ON VENTILATION. RT WAS MADE AWARE SAID THERE WAS NOT MUCH THEY COULD DO ON THE VENTILATION. PATIENT WAS PRONED. OXYGEN SATURATIONS INCREASED TO 90 PERCENT.
[2020-05-29 03:16] LABS: ABG BASE EXCESS -2.9 mmol/L (-2.0-3.0); ABG HCO3 26.5 mmol/L (21.0-28.0); ABG OXYGEN SATURATION 77.4 % (95.0-99.0); ABG PCO2 67 mmHg (32-45)
[2020-05-29 03:22] LABS: ABG BASE EXCESS -3.4 mmol/L (-2.0-3.0); ABG PCO2 67 mmHg (32-45)
[2020-05-29 04:47] LABS: BASOPHILS % (AUTO) 0.3 % (0.0-5.0); EOSINOPHILS % (AUTO) 0.8 % (0.0-8.0); HEMATOCRIT 42.5 % (36-48); LYMPHOCYTES % (AUTO) 4.5 % (21.0-51.0); MEAN CORPUSCULAR HEMOGLOBIN 29.8 pg (27.0-33.0); MEAN CORPUSCULAR HGB CONC 30.1 g/dL (32.0-36.0); MEAN CORPUSCULAR VOLUME 99.1 fL (79-99); MONOCYTES % (AUTO) 4.3 % (3.0-13.0); NEUTROPHILS % (AUTO) 87.8 % (40.0-77.0); NUCLEATED RED BLOOD CELLS 0.3 % (0.0-0.19); PLATELET COUNT (AUTO) 139 K/uL (130-400); RED BLOOD CELL COUNT(AUTO) 4.29 MIL/uL (4.00-5.50); RED CELL DISTRIBUTION WIDTH 15.5 % (11.0-15.5); WHITE BLOOD COUNT (AUTO) 17.9 K/uL (4.8-10.8)
[2020-05-29 05:15] LABS: ALBUMIN 2.1 g/dL (3.5-5.0); BILIRUBIN,TOTAL 0.5 mg/dL (0.2-1.0); CREATININE 2.3 mg/dL (0.5-1.5); MAGNESIUM 4.1 mg/dL (1.80-2.40); PHOSPHORUS 5.9 mg/dL (2.5-4.9); POTASSIUM 4.1 mmol/L (3.5-5.1); TOTAL PROTEIN, SERUM 5.5 g/dL (6.0-8.3)
[2020-05-29] MEDS: NOREPINEPHRINE 4MG/NS 250ML 250 ML IV SCH (06:35)
[2020-05-29] MEDS: VASOPRESSIN 20 UNITS in SODIUM CHLORIDE 0.9% 100 ML IV SCH ×2 (06:36→23:36)
[2020-05-29 06:38] LABS: ABG BASE EXCESS -5.4 mmol/L (-2.0-3.0); ABG HCO3 22.4 mmol/L (21.0-28.0); ABG PCO2 52 mmHg (32-45)
[2020-05-29] MEDS ORDERED: NOREPINEPHRINE 4MG/NS 250ML 250 ML IV ONE (08:22)
[2020-05-29] MEDS: FAMOTIDINE/PF 20 MG/2 ML VIAL IV SCH ×2 (09:00→19:55)
[2020-05-29] MEDS: ENOXAPARIN SODIUM 60 MG/0.6 ML SQ SCH ×2 (09:00→19:57)
--- NOTE | 2020-05-29 09:43 | NUR ---
CHANGE OF STATUS Patient noted to have loss of cough and gag. PRINTING SCREEN ASSEMBLER made aware states to inquire about CT Scan and order nuero consult. BP 98/50, O2 SAT 86% ON 100 FIO2.
--- NOTE | 2020-05-29 11:37 | NUR ---
STATUS Patient remains hypoxic, 02 sat currently 82%, on highest vent settings, FiO2 @ 100%. Patient is proned with no change in o2 sat. Family notified of patients condition, Family arrived to hospital to see patient. Family would like patient to remain full code. Will continue to monitor patient.
--- NOTE | 2020-05-29 11:44 | NUR ---
LOSS OF COUGH AND GAG ELECTRONIC SECURITY SPECIALIST Ezio made aware of patients loss of cough and gag, sedation has been off, patient is too unstable for transport to CT SCAN. Nuerology consult order placed.
[2020-05-29] MEDS ORDERED: FUROSEMIDE 10 MG/ML 4ML VIAL IV SCH (20:30)
[2020-05-29] MEDS: NOREPINEPHRINE BITARTRATE 32 MG in SODIUM CHLORIDE 0.9% 250 ML IV PRN (23:36)
[2020-05-30] VITALS (74 sets, daily range): BP systolic 72–157; BP diastolic 34–85
[2020-05-30] MEDS ORDERED: SODIUM CHLORIDE 0.9% 100 ML IV ONE (01:24)
[2020-05-30] MEDS: VASOPRESSIN 20 UNITS in SODIUM CHLORIDE 0.9% 100 ML IV SCH ×2 (03:21→21:11)
[2020-05-30] MEDS: NOREPINEPHRINE BITARTRATE 32 MG in SODIUM CHLORIDE 0.9% 250 ML IV PRN ×2 (03:21→23:47)
[2020-05-30 08:02] LABS: BASOPHILS % (AUTO) 0.2 % (0.0-5.0); EOSINOPHILS % (AUTO) 0.1 % (0.0-8.0); HEMATOCRIT 38.1 % (36-48); LYMPHOCYTES % (AUTO) 6.3 % (21.0-51.0); MEAN CORPUSCULAR HGB CONC 30.7 g/dL (32.0-36.0); MEAN CORPUSCULAR VOLUME 97.7 fL (79-99); MONOCYTES % (AUTO) 2.9 % (3.0-13.0); NEUTROPHILS % (AUTO) 88.9 % (40.0-77.0); NUCLEATED RED BLOOD CELLS 0.7 % (0.0-0.19); PLATELET COUNT (AUTO) 108 K/uL (130-400); RED CELL DISTRIBUTION WIDTH 15.1 % (11.0-15.5); WHITE BLOOD COUNT (AUTO) 14.8 K/uL (4.8-10.8)
[2020-05-30 08:11] LABS: CREATININE 1.6 mg/dL (0.5-1.5); POTASSIUM 4.1 mmol/L (3.5-5.1)
[2020-05-30] MEDS ORDERED: PHARMACY COMMUNICATION MISC SCH (08:30)
[2020-05-30 08:37] LABS: ABG BASE EXCESS -2.8 mmol/L (-2.0-3.0); ABG HCO3 23.7 mmol/L (21.0-28.0); ABG OXYGEN SATURATION 97.2 % (95.0-99.0); ABG PCO2 48 mmHg (32-45)
[2020-05-30] MEDS: LACTATED RINGERS 1000ML 1,000 ML IV SCH ×2 (08:44→23:15)
[2020-05-30] MEDS ORDERED: ROCURONIUM BROMIDE 10MG/1ML 5ML VL IV SCH (08:45)
[2020-05-30] MEDS: FAMOTIDINE/PF 20 MG/2 ML VIAL IV SCH ×2 (08:58→19:39)
[2020-05-30] MEDS: ENOXAPARIN SODIUM 60 MG/0.6 ML SQ SCH ×2 (08:58→19:39)
[2020-05-30] MEDS: ROCURONIUM BROMIDE 100 MG in SODIUM CHLORIDE 0.9% 100 ML IV SCH (12:44)
[2020-05-30 15:03] LABS: ABG BASE EXCESS 0.3 mmol/L (-2.0-3.0); ABG HCO3 25.6 mmol/L (21.0-28.0); ABG OXYGEN SATURATION 94.2 % (95.0-99.0); ABG PCO2 44 mmHg (32-45)
[2020-05-30] MEDS ORDERED: SODIUM CHLORIDE 0.9% 1000ML 1,000 ML IV ONE ×2 (15:41→16:15)
[2020-05-30] MEDS ORDERED: VANCOMYCIN PROTOCOL PER PHARMACY IV SCH (16:15)
[2020-05-30] MEDS: CEFEPIME HCL 1 GM VIAL IVP SCH (17:56)
[2020-05-30] MEDS: VANCOMYCIN 1.25 GM in SODIUM CHLORIDE 0.9% 250 ML IV SCH (17:57)
[2020-05-30] MEDS: HYDROCORTISONE SOD SUCCINATE 100 MG/2 ML VIAL IV SCH ×2 (17:57→23:40)
[2020-05-30] MEDS: DOXYCYCLINE 100MG+NS 250ML 250 ML IV SCH (21:10)
[2020-05-30] MEDS: PHENYLEPHRINE HCL 100 MG in SODIUM CHLORIDE 0.9% 250 ML IV SCH (21:11)
[2020-05-31] VITALS (79 sets, daily range): BP systolic 93–159; BP diastolic 44–80
[2020-05-31] MEDS: MIDAZOLAM 100MG-0.9% NS 100ML 100ML BAG IV SCH (02:17)
[2020-05-31] MEDS ORDERED: SODIUM CHLORIDE 0.9% 100 ML IV ONE (02:27)
[2020-05-31] MEDS ORDERED: ROCURONIUM BROMIDE 10MG/1ML 5ML VL ONE (02:40)
[2020-05-31] MEDS: CEFEPIME HCL 1 GM VIAL IVP SCH ×2 (04:29→18:07)
[2020-05-31] MEDS: HYDROCORTISONE SOD SUCCINATE 100 MG/2 ML VIAL IV SCH ×3 (05:44→18:07)
--- NOTE | 2020-05-31 06:50 | NUR ---
ABX UNABLE TO GIVE DOXYCYCLINE DUE TO UNAVAILABLITY. AWAITING PHARMACY
[2020-05-31] MEDS: LACTATED RINGERS 1000ML 1,000 ML IV SCH ×2 (07:15→23:48)
[2020-05-31 08:30] LABS: BASOPHILS % (AUTO) 0.3 % (0.0-5.0); EOSINOPHILS % (AUTO) 1.5 % (0.0-8.0); HEMATOCRIT 33.6 % (36-48); LYMPHOCYTES % (AUTO) 4.8 % (21.0-51.0); MEAN CORPUSCULAR HEMOGLOBIN 29.7 pg (27.0-33.0); MEAN CORPUSCULAR HGB CONC 29.2 g/dL (32.0-36.0); MEAN CORPUSCULAR VOLUME 101.8 fL (79-99); MONOCYTES % (AUTO) 3.4 % (3.0-13.0); NUCLEATED RED BLOOD CELLS 0.8 % (0.0-0.19); PLATELET COUNT (AUTO) 87 K/uL (130-400); RED CELL DISTRIBUTION WIDTH 15.7 % (11.0-15.5); WHITE BLOOD COUNT (AUTO) 10.5 K/uL (4.8-10.8)
[2020-05-31 08:48] LABS: CREATININE 1.2 mg/dL (0.5-1.5); POTASSIUM 4.3 mmol/L (3.5-5.1)
[2020-05-31 08:50] LABS: INR 0.96 (0.85-1.15); PROTHROMBIN TIME 10.4 SEC (9.6-11.6)
[2020-05-31 08:59] LABS: B-TYPE NATRIURETIC PEPTIDE 855 pg/mL (0-100)
[2020-05-31 09:19] LABS: ABG BASE EXCESS -4.1 mmol/L (-2.0-3.0); ABG HCO3 21.5 mmol/L (21.0-28.0); ABG OXYGEN SATURATION 95.6 % (95.0-99.0); ABG PCO2 41 mmHg (32-45)
[2020-05-31] MEDS: FENTANYL 2500MCG+NS 250ML 250 ML IV SCH (10:31)
[2020-05-31] MEDS: DOXYCYCLINE 100MG+NS 250ML 250 ML IV SCH ×2 (10:32→20:00)
[2020-05-31] MEDS: ENOXAPARIN SODIUM 60 MG/0.6 ML SQ SCH ×2 (10:32→20:23)
[2020-05-31] MEDS: FAMOTIDINE/PF 20 MG/2 ML VIAL IV SCH ×2 (10:32→20:23)
[2020-05-31] MEDS: VANCOMYCIN 1.25 GM in SODIUM CHLORIDE 0.9% 250 ML IV SCH (18:07)
[2020-05-31] MEDS: PHENYLEPHRINE HCL 100 MG in SODIUM CHLORIDE 0.9% 250 ML IV SCH (20:24)
[2020-05-31] MEDS: ROCURONIUM BROMIDE 100 MG in SODIUM CHLORIDE 0.9% 100 ML IV SCH (20:24)
[2020-05-31] MEDS: NOREPINEPHRINE BITARTRATE 32 MG in SODIUM CHLORIDE 0.9% 250 ML IV PRN (20:24)
[2020-05-31] MEDS: VASOPRESSIN 20 UNITS in SODIUM CHLORIDE 0.9% 100 ML IV SCH (20:25)
[2020-06-01] VITALS (41 sets, daily range): BP systolic 92–153; BP diastolic 45–75
[2020-06-01] MEDS: HYDROCORTISONE SOD SUCCINATE 100 MG/2 ML VIAL IV SCH ×4 (00:24→18:00)
[2020-06-01] MEDS: FENTANYL 2500MCG+NS 250ML 250 ML IV SCH ×3 (02:26→20:21)
[2020-06-01] MEDS: MIDAZOLAM 100MG-0.9% NS 100ML 100ML BAG IV SCH ×3 (02:26→20:21)
[2020-06-01 03:36] LABS: ABG BASE EXCESS -3.5 mmol/L (-2.0-3.0); ABG OXYGEN SATURATION 93.9 % (95.0-99.0); ABG PCO2 67 mmHg (32-45)
[2020-06-01] MEDS: CEFEPIME HCL 1 GM VIAL IVP SCH ×2 (04:16→16:54)
--- NOTE | 2020-06-01 04:18 | NUR ---
[facility] WAS CALLED TIMES TWO 05/31/2020 ABOUT DOXYCYCLINE. PER PHARMACY TWO DOSE WAS ALREADY ISSUED. NO MEDICATION WAS FOUND IN THE AREA. PHARMACY WAS NOTIFIED OF THE INABILITY TO LOCATED MEDICATION. UNABLE TO MEDICATE PATIENT DUE TO UNAVAILABLE ,MEDICATION.
[2020-06-01] MEDS: LACTATED RINGERS 1000ML 1,000 ML IV SCH ×2 (05:32→15:15)
[2020-06-01 06:04] LABS: ALBUMIN 1.8 g/dL (3.5-5.0); BILIRUBIN,TOTAL 1.6 mg/dL (0.2-1.0); CREATININE 0.9 mg/dL (0.5-1.5); MAGNESIUM 2.8 mg/dL (1.80-2.40); PHOSPHORUS 3.2 mg/dL (2.5-4.9); POTASSIUM 4.1 mmol/L (3.5-5.1); TOTAL PROTEIN, SERUM 5.8 g/dL (6.0-8.3)
[2020-06-01] MEDS ORDERED: PHARMACY COMMUNICATION MISC SCH (08:15)
--- NOTE | 2020-06-01 08:19 | NUR ---
DIETARY Have been awaiting dietary recs for tube feeds for a couple of days. None received, Called vending machine coin collector and left message today.
[2020-06-01] MEDS ORDERED: ROCURONIUM BROMIDE 10MG/1ML 5ML VL IV SCH (08:45)
[2020-06-01] MEDS: ENOXAPARIN SODIUM 60 MG/0.6 ML SQ SCH ×2 (08:52→20:22)
[2020-06-01] MEDS: FAMOTIDINE/PF 20 MG/2 ML VIAL IV SCH ×2 (08:52→20:22)
--- NOTE | 2020-06-01 11:12 | NUR ---
SUPINE Patient turned, currently tolerating well, o2 sat is 99%. Will continue to monitor.
[2020-06-01] MEDS: VANCOMYCIN 1.25 GM in SODIUM CHLORIDE 0.9% 250 ML IV SCH (16:55)
[2020-06-01] MEDS: DOXYCYCLINE 100MG+NS 250ML 250 ML IV SCH ×2 (17:00→21:45)
[2020-06-01] MEDS ORDERED: SODIUM CHLORIDE 0.9% 1000ML 1,000 ML IV ONE (17:05)
[2020-06-02] VITALS (61 sets, daily range): BP systolic 82–142; BP diastolic 41–75
[2020-06-02] MEDS: LACTATED RINGERS 1000ML 1,000 ML IV SCH (00:22)
[2020-06-02] MEDS: HYDROCORTISONE SOD SUCCINATE 100 MG/2 ML VIAL IV SCH ×4 (00:22→17:24)
[2020-06-02 04:21] LABS: BASOPHILS % (AUTO) 0.2 % (0.0-5.0); HEMATOCRIT 32.3 % (36-48); LYMPHOCYTES % (AUTO) 5.9 % (21.0-51.0); MEAN CORPUSCULAR HGB CONC 29.7 g/dL (32.0-36.0); MEAN CORPUSCULAR VOLUME 100.9 fL (79-99); MONOCYTES % (AUTO) 3.6 % (3.0-13.0); NEUTROPHILS % (AUTO) 85.9 % (40.0-77.0); NUCLEATED RED BLOOD CELLS 0.8 % (0.0-0.19); PLATELET COUNT (AUTO) 75 K/uL (130-400); RED CELL DISTRIBUTION WIDTH 16.1 % (11.0-15.5); WHITE BLOOD COUNT (AUTO) 6.3 K/uL (4.8-10.8)
[2020-06-02 04:32] LABS: ALBUMIN 1.6 g/dL (3.5-5.0); BILIRUBIN,TOTAL 1.6 mg/dL (0.2-1.0); CREATININE 0.8 mg/dL (0.5-1.5); MAGNESIUM 2.6 mg/dL (1.80-2.40); PHOSPHORUS 2.3 mg/dL (2.5-4.9); POTASSIUM 3.7 mmol/L (3.5-5.1); TOTAL PROTEIN, SERUM 4.9 g/dL (6.0-8.3)
[2020-06-02 04:39] LABS: ABG BASE EXCESS 0.4 mmol/L (-2.0-3.0); ABG HCO3 27.7 mmol/L (21.0-28.0); ABG OXYGEN SATURATION 83.2 % (95.0-99.0); ABG PCO2 55 mmHg (32-45)
[2020-06-02] MEDS: CEFEPIME HCL 1 GM VIAL IVP SCH ×2 (04:59→16:10)
[2020-06-02] MEDS: DEXTROSE 5%-WATER 1,000 ML IV SCH ×2 (08:09→16:10)
[2020-06-02] MEDS: MIDAZOLAM 100MG-0.9% NS 100ML 100ML BAG IV SCH ×2 (08:10→08:14)
[2020-06-02] MEDS: FAMOTIDINE/PF 20 MG/2 ML VIAL IV SCH ×2 (08:11→19:44)
[2020-06-02] MEDS: DOXYCYCLINE 100MG+NS 250ML 250 ML IV SCH (08:11)
[2020-06-02] MEDS: ENOXAPARIN SODIUM 60 MG/0.6 ML SQ SCH ×2 (08:11→19:45)
[2020-06-02] MEDS: FENTANYL 2500MCG+NS 250ML 250 ML IV SCH ×2 (10:10→19:44)
--- NOTE | 2020-06-02 12:46 | NUR ---
RD FOLLOW UP - TUBE FEEDING RECOMMENDATIONS Recommend initiate Glucerna 1.5 @15mls/hr. Goal rate 40mls/hr. Recommend flushes 180mls Q4hrs. Recommendations faxed to 2B ([id number]), Called 2CV, no answer. Called 2B and notified Pig Furnace Operator. NUTRITION NOTE: Previous tube feeding recommendations sent 05/28/20. Previous recommendations not received, RD not notified. New recommendations faxed today. Pt NPO x 9 days. High Risk for PCM. Na 161, Cl 127, BUN 47, BG 145, Ca 8.0, P 2.3, Mg 2.60, T. bili 1.6, AST 70, ALT 89, Alb 1.6. RD TO CONTINUE TO MONITOR. PLEASE NOTIFY ADDITIONAL NUTRITION CONCERNS ARISE. Thank you.
[2020-06-02] MEDS: VANCOMYCIN 1.25 GM in SODIUM CHLORIDE 0.9% 250 ML IV SCH (17:48)
--- NOTE | 2020-06-02 17:58 | NUR ---
1600 Patient proned at 1600 tolerated well no events noted asw per Dr. Taylor request.
[2020-06-02] MEDS ORDERED: DOXYCYCLINE HYCLATE 100 MG TABLET PO SCH (21:00)
[2020-06-03] VITALS (85 sets, daily range): BP systolic 89–148; BP diastolic 43–91
[2020-06-03] MEDS: HYDROCORTISONE SOD SUCCINATE 100 MG/2 ML VIAL IV SCH ×2 (00:43→05:34)
[2020-06-03 03:56] LABS: ALBUMIN 1.5 g/dL (3.5-5.0); CREATININE 0.9 mg/dL (0.5-1.5); MAGNESIUM 2.2 mg/dL (1.80-2.40); POTASSIUM 4.9 mmol/L (3.5-5.1)
[2020-06-03] MEDS: CEFEPIME HCL 1 GM VIAL IVP SCH (04:08)
[2020-06-03] MEDS: MIDAZOLAM 100MG-0.9% NS 100ML 100ML BAG IV SCH ×2 (04:08→17:22)
[2020-06-03 05:37] LABS: BASOPHILS % (AUTO) 0.6 % (0.0-5.0); EOSINOPHILS % (AUTO) 1.1 % (0.0-8.0); HEMATOCRIT 35.3 % (36-48); LYMPHOCYTES % (AUTO) 4.3 % (21.0-51.0); MEAN CORPUSCULAR HEMOGLOBIN 29.7 pg (27.0-33.0); MEAN CORPUSCULAR HGB CONC 29.7 g/dL (32.0-36.0); MONOCYTES % (AUTO) 3.6 % (3.0-13.0); NEUTROPHILS % (AUTO) 84.4 % (40.0-77.0); PLATELET COUNT (AUTO) 63 K/uL (130-400); RED BLOOD CELL COUNT(AUTO) 3.53 MIL/uL (4.00-5.50); RED CELL DISTRIBUTION WIDTH 16.9 % (11.0-15.5); WHITE BLOOD COUNT (AUTO) 10.5 K/uL (4.8-10.8)
[2020-06-03] MEDS: DEXTROSE 5%-WATER 1,000 ML IV SCH (05:39)
[2020-06-03] MEDS: FENTANYL 2500MCG+NS 250ML 250 ML IV SCH (05:39)
[2020-06-03] MEDS: ENOXAPARIN SODIUM 60 MG/0.6 ML SQ SCH ×2 (08:38→20:46)
[2020-06-03] MEDS: FAMOTIDINE/PF 20 MG/2 ML VIAL IV SCH ×2 (08:38→20:45)
--- NOTE | 2020-06-03 08:38 | NUR ---
0800 Dr. Rodarte made rounds reviewed pt labs he was made aware pts plt is 63 and asked if we should hold lovenox dose. Was told to give dose today and hold if plt goes below 50.
[2020-06-03] MEDS: VANCOMYCIN 1.25 GM in SODIUM CHLORIDE 0.9% 250 ML IV SCH (18:16)
[2020-06-04] VITALS (49 sets, daily range): BP systolic 79–131; BP diastolic 41–82
[2020-06-04] MEDS: MIDAZOLAM 100MG-0.9% NS 100ML 100ML BAG IV SCH ×3 (02:39→18:06)
[2020-06-04] MEDS: FENTANYL 2500MCG+NS 250ML 250 ML IV SCH ×3 (05:09→18:06)
--- NOTE | 2020-06-04 07:00 | NUR ---
0700 - ACCEPTED CARE REPORT RECEIVED USING SBAR FORMAT
[2020-06-04] MEDS: LACTATED RINGERS 1000ML 500 ML IV SCH ×5 (08:46→17:38)
[2020-06-04] MEDS: ENOXAPARIN SODIUM 60 MG/0.6 ML SQ SCH ×2 (08:48→21:58)
[2020-06-04] MEDS: FAMOTIDINE/PF 20 MG/2 ML VIAL IV SCH ×2 (08:48→21:00)
[2020-06-04] MEDS: VANCOMYCIN 1.25 GM in SODIUM CHLORIDE 0.9% 250 ML IV SCH (17:36)
[2020-06-04] MEDS ORDERED: BUMETANIDE 0.25 MG/ML 4 ML VIAL IVP SCH (20:30)
[2020-06-04] MEDS ORDERED: BUMETANIDE 0.25 MG/ML 10 ML 40 ML IV SCH (21:00)
[2020-06-05] VITALS (45 sets, daily range): BP systolic 83–143; BP diastolic 42–81
[2020-06-05] MEDS: LACTATED RINGERS 1000ML 500 ML IV SCH ×3 (00:10→06:07)
[2020-06-05 00:47] LABS: ABG BASE EXCESS -2.7 mmol/L (-2.0-3.0); ABG OXYGEN SATURATION 65.1 % (95.0-99.0); ABG PCO2 49 mmHg (32-45)
[2020-06-05] MEDS ORDERED: FUROSEMIDE 10 MG/ML 2ML VIAL IV STA (01:06)
[2020-06-05] MEDS ORDERED: FUROSEMIDE 10 MG/ML 2ML VIAL ONE (01:09)
--- NOTE | 2020-06-05 02:16 | NUR ---
FACTORY HAND SSOLIS 2ND ICU Addendum: 06/08/20 at 0917 by DANNY PUGA RTSLT Amended: Links added.
[2020-06-05 02:30] LABS: ABG BASE EXCESS -3.7 mmol/L (-2.0-3.0); ABG HCO3 23.4 mmol/L (21.0-28.0); ABG OXYGEN SATURATION 90.4 % (95.0-99.0); ABG PCO2 50 mmHg (32-45)
[2020-06-05] MEDS ORDERED: BUMETANIDE 0.25 MG/ML 10 ML 40 ML IV SCH (04:00)
[2020-06-05 05:16] LABS: BASOPHILS % (AUTO) 0.4 % (0.0-5.0); EOSINOPHILS % (AUTO) 0.7 % (0.0-8.0); HEMATOCRIT 33.6 % (36-48); LYMPHOCYTES % (AUTO) 6.4 % (21.0-51.0); MEAN CORPUSCULAR HEMOGLOBIN 29.8 pg (27.0-33.0); MEAN CORPUSCULAR HGB CONC 29.5 g/dL (32.0-36.0); MEAN CORPUSCULAR VOLUME 101.2 fL (79-99); NEUTROPHILS % (AUTO) 84.2 % (40.0-77.0); NUCLEATED RED BLOOD CELLS 0.7 % (0.0-0.19); PLATELET COUNT (AUTO) 64 K/uL (130-400); RED BLOOD CELL COUNT(AUTO) 3.32 MIL/uL (4.00-5.50); RED CELL DISTRIBUTION WIDTH 18.2 % (11.0-15.5); WHITE BLOOD COUNT (AUTO) 9.6 K/uL (4.8-10.8)
[2020-06-05] MEDS ORDERED: BUMETANIDE 0.25MG/ML 40ML IV SCH (05:30)
[2020-06-05 05:43] LABS: ALBUMIN 1.4 g/dL (3.5-5.0); BILIRUBIN,TOTAL 1.4 mg/dL (0.2-1.0); CREATININE 1.6 mg/dL (0.5-1.5); MAGNESIUM 2.2 mg/dL (1.80-2.40); PHOSPHORUS 3.5 mg/dL (2.5-4.9); POTASSIUM 4.9 mmol/L (3.5-5.1); TOTAL PROTEIN, SERUM 4.7 g/dL (6.0-8.3)
[2020-06-05] MEDS ORDERED: FUROSEMIDE 10 MG/ML 2ML VIAL IV SCH (06:00)
[2020-06-05] MEDS: FAMOTIDINE/PF 20 MG/2 ML VIAL IV SCH (06:07)
--- NOTE | 2020-06-05 07:00 | NUR ---
ACCEPTED CARE ACCEPTED CARE REPORT RECEIVED USING SBAR FORMAT
[2020-06-05 07:50] LABS: ABG BASE EXCESS -3.9 mmol/L (-2.0-3.0); ABG HCO3 22.8 mmol/L (21.0-28.0); ABG OXYGEN SATURATION 91.7 % (95.0-99.0); ABG PCO2 48 mmHg (32-45)
--- NOTE | 2020-06-05 10:20 | NUR ---
DESAT INCREASED DRIPS PATIENT'S O2 SATS WAS REGISTERING IN THE LOW 70'S. RESPIRATORY AT BEDSIDE. PATIENT WAS TAKEN OFF VENT AND BAGGED WITH 100% FIO2. ROCURONIUM DRIP WAS RESTARTED AND FENTANYL DRIP WAS INCREASED. PATIENT STABILIZED AND RECONNECTED TO VENT.
[2020-06-05] MEDS: FENTANYL 2500MCG+NS 250ML 250 ML IV SCH ×2 (10:42→17:32)
[2020-06-05] MEDS: ENOXAPARIN SODIUM 60 MG/0.6 ML SQ SCH ×2 (10:43→20:36)
--- NOTE | 2020-06-05 11:30 | NUR ---
TUBE FEEDING TUBE FEEDING HELD FOR RESIDUAL OF 400 MLS. RESIDUAL RETURNED.
--- NOTE | 2020-06-05 13:00 | NUR ---
MD VISIT DR. CHRISTIANSEN AT BEDSIDE UPDATED USING SBAR FORMAT. NEW ORDERS RECEIVED. VENT ADJUSTED TO DELIVER 95% O2.
[2020-06-05] MEDS: PANTOPRAZOLE 40 MG/VIAL IVP SCH (13:40)
[2020-06-05 14:09] LABS: MAGNESIUM 2.2 mg/dL (1.80-2.40); POTASSIUM 5.4 mmol/L (3.5-5.1)
[2020-06-05] MEDS: MIDAZOLAM 100MG-0.9% NS 100ML 100ML BAG IV SCH (17:32)
[2020-06-05] MEDS: VANCOMYCIN 1.25 GM in SODIUM CHLORIDE 0.9% 250 ML IV SCH (17:42)
--- NOTE | 2020-06-05 18:00 | NUR ---
TUBE FEED HELD TUBE FEED HELD FOR TUBE FEED RESIDUAL OF 250 MLS, RESIDUAL RETURNED.
[2020-06-05 21:58] LABS: MAGNESIUM 2.4 mg/dL (1.80-2.40); POTASSIUM 4.9 mmol/L (3.5-5.1)
[2020-06-06] VITALS (41 sets, daily range): BP systolic 73–217; BP diastolic 40–107
[2020-06-06] MEDS: MIDAZOLAM 100MG-0.9% NS 100ML 100ML BAG IV SCH ×2 (02:49→12:58)
[2020-06-06] MEDS: FENTANYL 2500MCG+NS 250ML 250 ML IV SCH ×3 (02:51→21:20)
[2020-06-06 04:14] LABS: ABG BASE EXCESS -2.8 mmol/L (-2.0-3.0); ABG HCO3 22.4 mmol/L (21.0-28.0); ABG OXYGEN SATURATION 96.5 % (95.0-99.0); ABG PCO2 41 mmHg (32-45)
[2020-06-06 05:33] LABS: BASOPHILS % (AUTO) 0.6 % (0.0-5.0); EOSINOPHILS % (AUTO) 1.7 % (0.0-8.0); HEMATOCRIT 36.5 % (36-48); LYMPHOCYTES % (AUTO) 6.9 % (21.0-51.0); MEAN CORPUSCULAR HEMOGLOBIN 30.4 pg (27.0-33.0); MEAN CORPUSCULAR HGB CONC 29.9 g/dL (32.0-36.0); MEAN CORPUSCULAR VOLUME 101.7 fL (79-99); MONOCYTES % (AUTO) 2.5 % (3.0-13.0); NUCLEATED RED BLOOD CELLS 0.6 % (0.0-0.19); PLATELET COUNT (AUTO) 62 K/uL (130-400); RED BLOOD CELL COUNT(AUTO) 3.59 MIL/uL (4.00-5.50); RED CELL DISTRIBUTION WIDTH 18.3 % (11.0-15.5); WHITE BLOOD COUNT (AUTO) 8.8 K/uL (4.8-10.8)
[2020-06-06 05:58] LABS: ALBUMIN 1.4 g/dL (3.5-5.0); BILIRUBIN,TOTAL 1.1 mg/dL (0.2-1.0); CREATININE 2.2 mg/dL (0.5-1.5); MAGNESIUM 2.3 mg/dL (1.80-2.40); PHOSPHORUS 4.7 mg/dL (2.5-4.9); POTASSIUM 4.6 mmol/L (3.5-5.1)
[2020-06-06] MEDS: ENOXAPARIN SODIUM 60 MG/0.6 ML SQ SCH (09:51)
[2020-06-06] MEDS: PANTOPRAZOLE 40 MG/VIAL IVP SCH (09:53)
[2020-06-06] MEDS ORDERED: POLYETHYLENE GLYCOL 3350 17 GM POWD.PACK PO SCH (10:00)
[2020-06-06] MEDS ORDERED: MUPIROCIN OINTMENT 22 GM TUBE TP SCH (11:00)
[2020-06-06 11:12] LABS: MAGNESIUM 2.3 mg/dL (1.80-2.40); POTASSIUM 4.7 mmol/L (3.5-5.1)
[2020-06-06] MEDS: VANCOMYCIN 1.25 GM in SODIUM CHLORIDE 0.9% 250 ML IV SCH (18:01)
[2020-06-06] MEDS: MUPIROCIN OINTMENT 22 GM TUBE TP SCH (20:46)
[2020-06-07] VITALS (75 sets, daily range): BP systolic 86–116; BP diastolic 49–76
[2020-06-07 00:51] LABS: ABG BASE EXCESS -2.4 mmol/L (-2.0-3.0); ABG HCO3 26.1 mmol/L (21.0-28.0); ABG OXYGEN SATURATION 53.3 % (95.0-99.0); ABG PCO2 61 mmHg (32-45)
--- NOTE | 2020-06-07 01:34 | NUR ---
HYPOXIA AND TACHYPNEA PT WAS PRONED FOR 18-19 HOURS AND TURNED TO SUPINE POSITION. AFTER BEING SUPINE FOR 3 HOURS PT DROPPED HER SPO2 SATURATION TO 80'S, THEN 60'S THEN 42%, RR 45. ABG WAS OBTAINED WHEN PT SPO2 WAS IN THE 80'S. BAILEE FREEMAN NP WITH BENCHMARK WAS NOTIFIED. FIO2 WAS INCREASED TO 100% AND PT WAS RETURNED TO A PRONE POSITION. SPO2 RETURNED TO HIGH 90'S, CURRENTLY AT THIS TIME PT IS 97% SPO2 AND SYN'D WITH VENT
[2020-06-07 04:27] LABS: HEMATOCRIT 33.4 % (36-48); MEAN CORPUSCULAR HEMOGLOBIN 30.1 pg (27.0-33.0); MEAN CORPUSCULAR HGB CONC 29.9 g/dL (32.0-36.0); MEAN CORPUSCULAR VOLUME 100.6 fL (79-99); NUCLEATED RED BLOOD CELLS 0.3 % (0.0-0.19); RED BLOOD CELL COUNT(AUTO) 3.32 MIL/uL (4.00-5.50); WHITE BLOOD COUNT (AUTO) 9.1 K/uL (4.8-10.8)
[2020-06-07 04:35] LABS: CREATININE 2.6 mg/dL (0.5-1.5); MAGNESIUM 2.2 mg/dL (1.80-2.40); POTASSIUM 5.1 mmol/L (3.5-5.1)
[2020-06-07 07:52] LABS: ABG BASE EXCESS -2.9 mmol/L (-2.0-3.0); ABG HCO3 25.8 mmol/L (21.0-28.0); ABG OXYGEN SATURATION 91.2 % (95.0-99.0); ABG PCO2 62 mmHg (32-45)
--- NOTE | 2020-06-07 09:00 | NUR ---
NOTIFIED PROVIDER NOTIFIED RESTAURANT HOURLY TEAM MEMBER IN REGARDS TO PATIENT'S DAUGHTER REQUESTING A PHONE CALL FROM THE DOCTOR, CONTACT INFORMATION WAS PASSED ON, STATED HE WOULD LET MD KNOW. WILL FOLLOW UP WITH MD WHEN HE ROUNDS. Addendum: 06/07/20 at 1846 by SHA LEDBETTER RN RN MD PROVIDED WITH CONTACT INFORMATION PER RESTAURANT HOURLY TEAM MEMBER. RESTAURANT HOURLY TEAM MEMBER ALSO NOTIFIED ME TO CONTINUE TO HOLD THE BUMEX AND KEEP THE PATIENT PRONED PER MD.
[2020-06-07] MEDS: POLYETHYLENE GLYCOL 3350 17 GM POWD.PACK PO SCH (09:31)
[2020-06-07] MEDS: PANTOPRAZOLE 40 MG/VIAL IVP SCH (09:59)
[2020-06-07] MEDS: FENTANYL 2500MCG+NS 250ML 250 ML IV SCH ×2 (10:21→20:01)
[2020-06-07] MEDS: MUPIROCIN OINTMENT 22 GM TUBE TP SCH ×2 (10:49→20:02)
[2020-06-07] MEDS: VANCOMYCIN 1.25 GM in SODIUM CHLORIDE 0.9% 250 ML IV SCH (17:41)
[2020-06-07] MEDS: MIDAZOLAM 100MG-0.9% NS 100ML 100ML BAG IV SCH (18:00)
[2020-06-07] MEDS: LINEZOLID 600 MG/ISO-OSM 300 ML IV SCH (22:24)
[2020-06-08] VITALS (81 sets, daily range): BP systolic 92–137; BP diastolic 46–72
[2020-06-08] MEDS: MIDAZOLAM 100MG-0.9% NS 100ML 100ML BAG IV SCH ×2 (02:11→10:58)
[2020-06-08 04:21] LABS: ABG BASE EXCESS -4.9 mmol/L (-2.0-3.0); ABG HCO3 23.8 mmol/L (21.0-28.0); ABG OXYGEN SATURATION 94.2 % (95.0-99.0); ABG PCO2 59 mmHg (32-45)
[2020-06-08 04:23] LABS: HEMATOCRIT 32.6 % (36-48); MEAN CORPUSCULAR HEMOGLOBIN 30.1 pg (27.0-33.0); MEAN CORPUSCULAR HGB CONC 29.8 g/dL (32.0-36.0); MEAN CORPUSCULAR VOLUME 101.2 fL (79-99); NUCLEATED RED BLOOD CELLS 0.5 % (0.0-0.19); RED BLOOD CELL COUNT(AUTO) 3.22 MIL/uL (4.00-5.50); WHITE BLOOD COUNT (AUTO) 7.4 K/uL (4.8-10.8)
[2020-06-08] MEDS: FENTANYL 2500MCG+NS 250ML 250 ML IV SCH ×3 (04:32→21:53)
[2020-06-08 04:34] LABS: MAGNESIUM 2.3 mg/dL (1.80-2.40); PHOSPHORUS 5.6 mg/dL (2.5-4.9); POTASSIUM 5.1 mmol/L (3.5-5.1)
[2020-06-08] MEDS ORDERED: SODIUM BICARB 8.4% 50ML SYRING 150 MEQ in DEXTROSE 5%-WATER 850 ML IV SCH (08:15)
[2020-06-08] MEDS: PANTOPRAZOLE 40 MG/VIAL IVP SCH (08:36)
[2020-06-08] MEDS: POLYETHYLENE GLYCOL 3350 17 GM POWD.PACK PO SCH (08:36)
[2020-06-08] MEDS: LINEZOLID 600 MG/ISO-OSM 300 ML IV SCH ×2 (08:36→21:28)
[2020-06-08] MEDS: MUPIROCIN OINTMENT 22 GM TUBE TP SCH ×2 (08:37→21:28)
--- NOTE | 2020-06-08 14:10 | NUR ---
MD VISIT DR. CHRISTIANSEN ROUNDING WITH OUTBOUND CALL CENTER REPRESENTATIVE, OVERALL PATIENT STATUS REVIEWED, NEPHROLOGY WAS CONSULTED EARLIER BUT DR. CHRISTIANSEN STATED PATIENT IS NOT A CANDIDATE FOR DYALISIS SHE IS ON PRESSORS AND UNABLE TO TOLERATE BEING SUPINE FOR LINE PLACEMENT. OUTBOUND CALL CENTER REPRESENTATIVE STATED SHE WOULD BE FOLLOWING UP WITH NEPHROLOGY TEAM.
--- NOTE | 2020-06-08 14:13 | NUR ---
RD FOLLOW UP Pt with Tube feeding with fluid retention per RN, no recent BM. Possible Trickle feedings per COOKER SULFITE note. Pt also with renal dysfunction. Elevated Cr, Phosphorus, BUN, Na. Pt unable to tolerate Supine positioning. Recommend modify Tube feeding Formula to Nepro 1.8 secondary to altered renal labs. Recommend Initiate trickle feedings goal of 15mls/hr as medically feasible. RD to monitor for advancement or continuation of bolus due to continued prone position. Recommendations faxed to 2C ([phone]), RN notified. RD to continue to monitor. Please notify as additional nutrition concerns arise. Thank you. Addendum: 06/08/20 at [address] Amended: Links added.
[2020-06-08] MEDS: VANCOMYCIN 1.25 GM in SODIUM CHLORIDE 0.9% 250 ML IV SCH (17:24)
[2020-06-09] VITALS (71 sets, daily range): BP systolic 82–135; BP diastolic 46–78
--- NOTE | 2020-06-09 02:04 | NUR ---
HYPOXIA PT EMERGENTLY PRONED AFTER SPO2 IN THE 60'S WITH RR IN THE 50'S. PT REMAINS ON MAX VENT SETTINGS PER MD ORDERS. PT PROGNOSIS IS POOR AND FAMILY WAS MADE AWARE AND ALLOWED TO VIDEO TIME WITH PATIENT. FAMILY WAS ALSO ABLE TO BRING PT HER ROSARY. ROSARY IS NOW WITH PATIENT. ALL CARE WAS PERFORMED MILLARD CARE, MOUTH CARE AND LINEN CHANGED.. PT IS SINUS RHYTHM ON THE MONITOR WITH ACCEPTABLE BP AND REMAINS AFEBRILE. VERÓNICA, FENTANYL, VERSED, AND LEVO GTTS REMAINS.VENT SETTING ARE AC RR 38, PEEP 8 VT 290 FIO2 100%, PIP 38 WITH PLATEAU 26
[2020-06-09 04:36] LABS: BASOPHILS % (AUTO) 0.6 % (0.0-5.0); EOSINOPHILS % (AUTO) 0.7 % (0.0-8.0); HEMATOCRIT 33.5 % (36-48); MEAN CORPUSCULAR HEMOGLOBIN 29.6 pg (27.0-33.0); MEAN CORPUSCULAR HGB CONC 29.6 g/dL (32.0-36.0); MONOCYTES % (AUTO) 4.2 % (3.0-13.0); NEUTROPHILS % (AUTO) 85.8 % (40.0-77.0); NUCLEATED RED BLOOD CELLS 0.4 % (0.0-0.19); PLATELET COUNT (AUTO) 76 K/uL (130-400); RED BLOOD CELL COUNT(AUTO) 3.35 MIL/uL (4.00-5.50); RED CELL DISTRIBUTION WIDTH 17.9 % (11.0-15.5); WHITE BLOOD COUNT (AUTO) 8.1 K/uL (4.8-10.8)
[2020-06-09] MEDS: MIDAZOLAM 100MG-0.9% NS 100ML 100ML BAG IV SCH ×3 (04:51→23:06)
[2020-06-09 05:12] LABS: ALBUMIN 1.3 g/dL (3.5-5.0); BILIRUBIN,TOTAL 0.6 mg/dL (0.2-1.0); CREATININE 3.1 mg/dL (0.5-1.5); MAGNESIUM 2.2 mg/dL (1.80-2.40); PHOSPHORUS 5.8 mg/dL (2.5-4.9); POTASSIUM 5.1 mmol/L (3.5-5.1); TOTAL PROTEIN, SERUM 5.2 g/dL (6.0-8.3); URIC ACID 3.7 mg/dL (2.6-7.2)
[2020-06-09 05:35] LABS: FERRITIN 1887 ng/mL (15-150); IRON, SERUM 29 mcg/dL (50-170)
[2020-06-09 05:42] LABS: INR 0.87 (0.85-1.15); PROTHROMBIN TIME 9.4 SEC (9.6-11.6)
[2020-06-09] MEDS: FENTANYL 2500MCG+NS 250ML 250 ML IV SCH ×3 (05:58→23:07)
[2020-06-09 07:03] LABS: ABG BASE EXCESS -3.2 mmol/L (-2.0-3.0); ABG HCO3 24.8 mmol/L (21.0-28.0); ABG OXYGEN SATURATION 97.4 % (95.0-99.0); ABG PCO2 56 mmHg (32-45)
[2020-06-09] MEDS: LINEZOLID 600 MG/ISO-OSM 300 ML IV SCH (08:01)
[2020-06-09] MEDS: MUPIROCIN OINTMENT 22 GM TUBE TP SCH ×2 (08:01→20:16)
[2020-06-09] MEDS: POLYETHYLENE GLYCOL 3350 17 GM POWD.PACK PO SCH (08:03)
[2020-06-09] MEDS: PANTOPRAZOLE 40 MG/VIAL IVP SCH (08:27)
[2020-06-09] MEDS: AMPICILLIN 2GM+NS 100ML 100 ML IV SCH ×2 (10:31→17:08)
--- NOTE | 2020-06-09 15:17 | NUR ---
MD VISIT DR. CHRISTIANSEN ROUNDMARCO ON PATIENT, REVIEWED OVERALL PATIENT STATUS, PLAN TO SUPINE PATIENT TO SEE HOW SHE DOES, NO NEW ORDERS AT THIS TIME. VSS, WILL CONTINUE TO MONITOR. ALSO SPOKE WITH DAUGHTER TO UPDATE ON PATIENT, DISCUSSED HOW PATIENT DID YESTERDAY WHEN SHE WAS SUPINED (BRADYCARDIC, TACHYPNIC, DROP IN SPO2) SHE STATED SHE STILL WANTED TO KEEP PATIENT ON FULL CODE STATUS.
[2020-06-10] VITALS (93 sets, daily range): BP systolic 89–152; BP diastolic 47–79
[2020-06-10] MEDS: AMPICILLIN 2GM+NS 100ML 100 ML IV SCH ×3 (01:50→17:14)
[2020-06-10 03:47] LABS: ABG BASE EXCESS -1.2 mmol/L (-2.0-3.0); ABG HCO3 20.3 mmol/L (21.0-28.0); ABG OXYGEN SATURATION 94.3 % (95.0-99.0); ABG PCO2 27 mmHg (32-45)
[2020-06-10 05:54] LABS: BASOPHILS % (AUTO) 0.5 % (0.0-5.0); EOSINOPHILS % (AUTO) 1.2 % (0.0-8.0); HEMATOCRIT 31.5 % (36-48); LYMPHOCYTES % (AUTO) 6.4 % (21.0-51.0); MEAN CORPUSCULAR HEMOGLOBIN 30.3 pg (27.0-33.0); MEAN CORPUSCULAR HGB CONC 30.5 g/dL (32.0-36.0); MEAN CORPUSCULAR VOLUME 99.4 fL (79-99); MONOCYTES % (AUTO) 4.3 % (3.0-13.0); NEUTROPHILS % (AUTO) 84.6 % (40.0-77.0); NUCLEATED RED BLOOD CELLS 0.9 % (0.0-0.19); PLATELET COUNT (AUTO) 96 K/uL (130-400); RED BLOOD CELL COUNT(AUTO) 3.17 MIL/uL (4.00-5.50); RED CELL DISTRIBUTION WIDTH 18.1 % (11.0-15.5); WHITE BLOOD COUNT (AUTO) 7.4 K/uL (4.8-10.8)
[2020-06-10 06:22] LABS: ALBUMIN 1.2 g/dL (3.5-5.0); BILIRUBIN,TOTAL 0.5 mg/dL (0.2-1.0); CREATININE 3.2 mg/dL (0.5-1.5); POTASSIUM 4.7 mmol/L (3.5-5.1); TOTAL PROTEIN, SERUM 5.1 g/dL (6.0-8.3)
[2020-06-10] MEDS: FENTANYL 2500MCG+NS 250ML 250 ML IV SCH ×3 (07:18→21:53)
[2020-06-10] MEDS: MIDAZOLAM 100MG-0.9% NS 100ML 100ML BAG IV SCH ×2 (07:18→21:18)
[2020-06-10] MEDS: MUPIROCIN OINTMENT 22 GM TUBE TP SCH ×2 (08:00→21:03)
[2020-06-10] MEDS: POLYETHYLENE GLYCOL 3350 17 GM POWD.PACK PO SCH (08:19)
[2020-06-10] MEDS: PANTOPRAZOLE 40 MG/VIAL IVP SCH (08:25)
[2020-06-10] MEDS: ROCURONIUM BROMIDE 250 MG in SODIUM CHLORIDE 0.9% 250 ML IV SCH ×3 (10:33→21:18)
--- NOTE | 2020-06-10 13:21 | NUR ---
MD VISIT DR. CHRISTIANSEN ROUNDING ON PATIENT, OVERALL PATIENT STATUS REVIEWED, NO NEW ORDERS, PLAN IS TO SUPINE PATIENT AGAIN TODAY AND IF SHE IS ABLE TO TOLERATE BEING SUPINE FOR 8 HOURS (PRONE FOR 16 HOURS) FOR 2-3 DAYS THEN THEY WILL MOVE FORWARD WITH DIALYSIS.
[2020-06-11] VITALS (95 sets, daily range): BP systolic 73–135; BP diastolic 43–68
[2020-06-11] MEDS: AMPICILLIN 2GM+NS 100ML 100 ML IV SCH ×3 (02:32→18:28)
[2020-06-11 04:22] LABS: HEMATOCRIT 35.2 % (36-48); MEAN CORPUSCULAR HEMOGLOBIN 29.8 pg (27.0-33.0); MEAN CORPUSCULAR HGB CONC 28.7 g/dL (32.0-36.0); MEAN CORPUSCULAR VOLUME 103.8 fL (79-99); RED BLOOD CELL COUNT(AUTO) 3.39 MIL/uL (4.00-5.50); RED CELL DISTRIBUTION WIDTH 18.5 % (11.0-15.5); WHITE BLOOD COUNT (AUTO) 13.8 K/uL (4.8-10.8)
[2020-06-11 04:34] LABS: CREATININE 3.9 mg/dL (0.5-1.5); MAGNESIUM 2.3 mg/dL (1.80-2.40); PHOSPHORUS 7.7 mg/dL (2.5-4.9); POTASSIUM 5.6 mmol/L (3.5-5.1)
[2020-06-11] MEDS: FENTANYL 2500MCG+NS 250ML 250 ML IV SCH ×3 (04:51→19:29)
[2020-06-11] MEDS: MIDAZOLAM 100MG-0.9% NS 100ML 100ML BAG IV SCH ×2 (06:13→19:29)
[2020-06-11 07:43] LABS: ABG BASE EXCESS -9.4 mmol/L (-2.0-3.0); ABG HCO3 23.8 mmol/L (21.0-28.0); ABG OXYGEN SATURATION 77.8 % (95.0-99.0); ABG PCO2 93 mmHg (32-45)
[2020-06-11] MEDS ORDERED: SODIUM BICARB 50MEQ 50ML VIAL IV SCH ×3 (08:45→16:55)
[2020-06-11] MEDS: POLYETHYLENE GLYCOL 3350 17 GM POWD.PACK PO SCH (08:53)
[2020-06-11] MEDS: MUPIROCIN OINTMENT 22 GM TUBE TP SCH ×2 (08:53→21:00)
[2020-06-11] MEDS: PANTOPRAZOLE 40 MG/VIAL IVP SCH (09:49)
[2020-06-11] MEDS: ROCURONIUM BROMIDE 250 MG in SODIUM CHLORIDE 0.9% 250 ML IV SCH ×2 (11:41→13:50)
[2020-06-11] MEDS ORDERED: CALCIUM GLUCONATE 1 GM/10 ML VIAL IV STA (16:55)
[2020-06-11] MEDS ORDERED: DEXTROSE 50%-WATER 25 GM/50 ML VIAL IV STA (16:55)
[2020-06-11] MEDS ORDERED: SODIUM POLYSTYRENE SULFONATE 15 GM/60 ML ML PO STA (16:55)
[2020-06-11] MEDS ORDERED: INSULIN HUMULIN R 100 UNIT/ML 3ML IV SCH ×2 (17:00→18:30)
[2020-06-11] MEDS: SODIUM BICARB 8.4% 50ML SYRING 200 MEQ in DEXTROSE 5%-WATER 800 ML IV SCH (17:00)
[2020-06-11] MEDS ORDERED: DEXTROSE 50%-WATER 50 ML DISP.SYRIN IV SCH (18:30)
[2020-06-11] MEDS ORDERED: CALCIUM GLUCONATE 1 GM/10 ML VIAL IV SCH (18:30)
[2020-06-11] MEDS ORDERED: SODIUM POLYSTYRENE SULFONATE 15 GM/60 ML ML PO SCH (18:30)
[2020-06-11] MEDS ORDERED: SODIUM CHLORIDE 0.9% 1000ML 2,000 ML IV ONE (18:43)
[2020-06-11] MEDS ORDERED: HEPARIN SODIUM 5000UNIT/ML 1ML VIAL ONE (22:05)
[2020-06-11] MEDS ORDERED: SODIUM CHLORIDE 0.9% 250 ML IV ONE (23:29)
[2020-06-11] MEDS ORDERED: SODIUM BICARB 50MEQ 50ML VIAL IV STA (23:34)
[2020-06-12] VITALS (63 sets, daily range): BP systolic 63–184; BP diastolic 17–90
--- NOTE | 2020-06-12 00:42 | NUR ---
HD TOLERANCE PT DID NOT TOLERATE HD WELL. NO FLUID WAS REMOVED AND LEVOPHED GTTS WAS INCREASE DUE TO HYPOTENSION. PT ALSO HAD A DECREASE IN SPO2 IN THE 70'S. BENCHMARK BEAUTY ADVISOR WAS NOTIFIED AND 1 AMPLE HCO3 WAS GIVEN WITH A 250CC SALINE BOLUS FOR ACIDOSIS. FAMILY WAS ALSO NOTIFIED AND WAS ASKED ABOUT CODE STATUS, FAMILY WANTS PT TO REMAIN A FULL CODE DESPITE EDUCATION ON DISEASE PROCESS. NO VENT CHANGES FOR SAFETY OF THE PATIENT PT IS AT MAX VENT SETTINGS. ONGOING MONITORING CONTINUES
[2020-06-12] MEDS: AMPICILLIN 2GM+NS 100ML 100 ML IV SCH ×3 (01:23→16:59)
[2020-06-12] MEDS: FENTANYL 2500MCG+NS 250ML 250 ML IV SCH ×5 (01:23→15:40)
[2020-06-12] MEDS: PHENYLEPHRINE HCL 100 MG in SODIUM CHLORIDE 0.9% 250 ML IV SCH ×2 (02:15→12:34)
[2020-06-12] MEDS: SODIUM BICARB 8.4% 50ML SYRING 200 MEQ in DEXTROSE 5%-WATER 800 ML IV SCH ×3 (03:47→16:59)
[2020-06-12 04:06] LABS: BASOPHILS % (AUTO) 0.9 % (0.0-5.0); EOSINOPHILS % (AUTO) 1.3 % (0.0-8.0); HEMATOCRIT 36.2 % (36-48); LYMPHOCYTES % (AUTO) 3.1 % (21.0-51.0); MEAN CORPUSCULAR HEMOGLOBIN 30.1 pg (27.0-33.0); MEAN CORPUSCULAR HGB CONC 28.5 g/dL (32.0-36.0); MEAN CORPUSCULAR VOLUME 105.8 fL (79-99); MONOCYTES % (AUTO) 5.1 % (3.0-13.0); NEUTROPHILS % (AUTO) 84.2 % (40.0-77.0); NUCLEATED RED BLOOD CELLS 4.6 % (0.0-0.19); PLATELET COUNT (AUTO) 136 K/uL (130-400); RED BLOOD CELL COUNT(AUTO) 3.42 MIL/uL (4.00-5.50); RED CELL DISTRIBUTION WIDTH 18.1 % (11.0-15.5); WHITE BLOOD COUNT (AUTO) 12.8 K/uL (4.8-10.8)
[2020-06-12 04:27] LABS: ALBUMIN 1.2 g/dL (3.5-5.0); BILIRUBIN,TOTAL 0.5 mg/dL (0.2-1.0); CREATININE 3.4 mg/dL (0.5-1.5); MAGNESIUM 2.2 mg/dL (1.80-2.40); PHOSPHORUS 6.7 mg/dL (2.5-4.9); POTASSIUM 4.4 mmol/L (3.5-5.1); TOTAL PROTEIN, SERUM 5.5 g/dL (6.0-8.3)
[2020-06-12] MEDS: MIDAZOLAM 100MG-0.9% NS 100ML 100ML BAG IV SCH ×2 (06:47→15:40)
[2020-06-12 08:00] LABS: ABG BASE EXCESS -9.3 mmol/L (-2.0-3.0); ABG HCO3 25.7 mmol/L (21.0-28.0); ABG OXYGEN SATURATION 46.2 % (95.0-99.0); ABG PCO2 116 mmHg (32-45)
[2020-06-12] MEDS: PANTOPRAZOLE 40 MG/VIAL IVP SCH (08:51)
[2020-06-12] MEDS: POLYETHYLENE GLYCOL 3350 17 GM POWD.PACK PO SCH (08:51)
--- NOTE | 2020-06-12 10:00 | NUR ---
FAMILY CALL Abe UMANA SPOKE WITH FAMILY ABOUT PT'S DETERIORATING CONDITION. DAUGHTER, PADMINI, STATES THAT THEY ARE AWARE AND WANT TO CONTINUE TO DO EVERYTHING POSSIBLE.
[2020-06-12] MEDS: MUPIROCIN OINTMENT 22 GM TUBE TP SCH ×2 (10:07→20:56)
[2020-06-12] MEDS: VASOPRESSIN 20 UNITS in SODIUM CHLORIDE 0.9% 100 ML IV SCH (12:34)
[2020-06-12] MEDS: NOREPINEPHRINE BITARTRATE 32 MG in SODIUM CHLORIDE 0.9% 250 ML IV PRN ×2 (12:35→15:40)
--- NOTE | 2020-06-12 14:09 | NUR ---
NEPHROLOGY, HOLD DIALYSIS. PER DR. RICHEY, HOLD DIALYSIS FOR TODAY DUE TO PT BEING UNSTABLE AND UNABLE TO TOLERATE TREATMENT.
[2020-06-12] MEDS: ROCURONIUM BROMIDE 250 MG in SODIUM CHLORIDE 0.9% 250 ML IV SCH (15:40)
--- NOTE | 2020-06-12 17:00 | NUR ---
TUBE FEEDINGS PER DR. ESPINOSA. HOLD TUBE FEEDINGS FOR NOW.
[2020-06-12] MEDS ORDERED: EPINEPHRINE 10 MG in SODIUM CHLORIDE 0.9% 250 ML IV SCH (19:15)
[2020-06-12 20:11] LABS: ABG BASE EXCESS -11.3 mmol/L (-2.0-3.0); ABG HCO3 23.9 mmol/L (21.0-28.0); ABG OXYGEN SATURATION 54.2 % (95.0-99.0); ABG PCO2 114 mmHg (32-45)
[2020-06-12] MEDS ORDERED: SODIUM CHLORIDE 0.9% 500ML 500 ML IV ONE (23:45)
[2020-06-13] VITALS (83 sets, daily range): BP systolic 76–185; BP diastolic 21–88
[2020-06-13] MEDS: FENTANYL 2500MCG+NS 250ML 250 ML IV SCH ×3 (00:33→15:23)
[2020-06-13] MEDS: AMPICILLIN 2GM+NS 100ML 100 ML IV SCH ×3 (00:33→17:22)
[2020-06-13 03:45] LABS: BASOPHILS % (AUTO) 0.9 % (0.0-5.0); EOSINOPHILS % (AUTO) 24.8 % (0.0-8.0); HEMATOCRIT 33.3 % (36-48); LYMPHOCYTES % (AUTO) 3.7 % (21.0-51.0); MEAN CORPUSCULAR HEMOGLOBIN 30.4 pg (27.0-33.0); MEAN CORPUSCULAR HGB CONC 29.1 g/dL (32.0-36.0); MEAN CORPUSCULAR VOLUME 104.4 fL (79-99); NUCLEATED RED BLOOD CELLS 15.6 % (0.0-0.19); PLATELET COUNT (AUTO) 157 K/uL (130-400); RED BLOOD CELL COUNT(AUTO) 3.19 MIL/uL (4.00-5.50); RED CELL DISTRIBUTION WIDTH 18.4 % (11.0-15.5); WHITE BLOOD COUNT (AUTO) 16.9 K/uL (4.8-10.8)
[2020-06-13 04:17] LABS: ALBUMIN 1.1 g/dL (3.5-5.0); CREATININE 3.8 mg/dL (0.5-1.5); PHOSPHORUS 6.1 mg/dL (2.5-4.9); POTASSIUM 4.1 mmol/L (3.5-5.1); TOTAL PROTEIN, SERUM 4.9 g/dL (6.0-8.3)
[2020-06-13 04:36] LABS: BAND NEUTROPHILS % (MANUAL) 33 % (0-2); LYMPHOCYTES % (MANUAL) 4 % (22-44); METAMYELOCYTES % 2 % (0-0); MONOCYTES % (MANUAL) 2 % (2-9); SEGMENTED NEUTROPHILS % 59 % (40-70)
[2020-06-13 04:37] LABS: MAN.DIFF COMMENT-IMPRESSION MANUAL DIFFERENTIAL
[2020-06-13 04:38] LABS: PLATELET MORPHOLOGY COMMENT DECREASED
[2020-06-13] MEDS: PHENYLEPHRINE HCL 100 MG in SODIUM CHLORIDE 0.9% 250 ML IV SCH ×3 (06:31→17:24)
[2020-06-13 06:53] LABS: ABG BASE EXCESS -0.4 mmol/L (-2.0-3.0); ABG HCO3 30.1 mmol/L (21.0-28.0); ABG OXYGEN SATURATION 81.9 % (95.0-99.0); ABG PCO2 79 mmHg (32-45)
[2020-06-13] MEDS: SODIUM BICARB 8.4% 50ML SYRING 200 MEQ in DEXTROSE 5%-WATER 800 ML IV SCH ×2 (07:32→17:23)
[2020-06-13] MEDS: MIDAZOLAM 100MG-0.9% NS 100ML 100ML BAG IV SCH ×2 (07:32→15:23)
[2020-06-13] MEDS: ROCURONIUM BROMIDE 250 MG in SODIUM CHLORIDE 0.9% 250 ML IV SCH ×2 (07:33→13:43)
[2020-06-13] MEDS: NOREPINEPHRINE BITARTRATE 32 MG in SODIUM CHLORIDE 0.9% 250 ML IV PRN ×2 (07:34→15:21)
[2020-06-13] MEDS ORDERED: SODIUM BICARB 8.4% 50ML SYRINGE IVP SCH (08:45)
[2020-06-13] MEDS: POLYETHYLENE GLYCOL 3350 17 GM POWD.PACK PO SCH (09:00)
[2020-06-13] MEDS ORDERED: SODIUM BICARB 50MEQ 50ML VIAL ONE (09:08)
[2020-06-13] MEDS: PANTOPRAZOLE 40 MG/VIAL IVP SCH (09:10)
[2020-06-13] MEDS ORDERED: SODIUM BICARB 50MEQ 50ML VIAL IV SCH (09:15)
[2020-06-13] MEDS: MUPIROCIN OINTMENT 22 GM TUBE TP SCH ×2 (10:07→21:26)
[2020-06-13] MEDS: HEPARIN SODIUM 5000UNIT/ML 1ML VIAL SQ SCH ×2 (10:11→17:22)
[2020-06-13] MEDS: VASOPRESSIN 20 UNITS in SODIUM CHLORIDE 0.9% 100 ML IV SCH ×2 (10:27→16:08)
[2020-06-13] MEDS: ARTIFICIAL TEARS 3.5 GM OINTMENT OU SCH ×3 (12:02→21:26)
[2020-06-13 12:10] LABS: HEPATITIS A ANTIBODY IGM Negative (Negative); HEPATITIS B CORE IGM Negative (Negative); HEPATITIS Bs ANTIGEN SCREEN P Negative (Negative)
[2020-06-13 15:52] LABS: ABG BASE EXCESS 4.9 mmol/L (-2.0-3.0); ABG HCO3 31.1 mmol/L (21.0-28.0); ABG OXYGEN SATURATION 83.8 % (95.0-99.0); ABG PCO2 52 mmHg (32-45)
[2020-06-13] MEDS: CHLORHEXIDINE GLUCONATE 473 ML MOUTHWASH MM SCH (21:26)
[2020-06-14] VITALS (63 sets, daily range): BP systolic 80–183; BP diastolic 43–93
[2020-06-14] MEDS: HEPARIN SODIUM 5000UNIT/ML 1ML VIAL SQ SCH ×3 (01:15→18:20)
[2020-06-14] MEDS: SODIUM BICARB 8.4% 50ML SYRING 200 MEQ in DEXTROSE 5%-WATER 800 ML IV SCH ×3 (02:12→17:33)
[2020-06-14] MEDS: AMPICILLIN 2GM+NS 100ML 100 ML IV SCH ×3 (02:12→17:53)
[2020-06-14] MEDS: ARTIFICIAL TEARS 3.5 GM OINTMENT OU SCH ×4 (03:15→22:02)
[2020-06-14 03:47] LABS: ABG BASE EXCESS 7.9 mmol/L (-2.0-3.0); ABG HCO3 33.2 mmol/L (21.0-28.0); ABG OXYGEN SATURATION 89.3 % (95.0-99.0); ABG PCO2 49 mmHg (32-45)
[2020-06-14 04:23] LABS: BASOPHILS % (AUTO) 0.2 % (0.0-5.0); EOSINOPHILS % (AUTO) 2.5 % (0.0-8.0); HEMATOCRIT 25.3 % (36-48); LYMPHOCYTES % (AUTO) 6.1 % (21.0-51.0); MEAN CORPUSCULAR HEMOGLOBIN 29.4 pg (27.0-33.0); MEAN CORPUSCULAR HGB CONC 30.4 g/dL (32.0-36.0); MEAN CORPUSCULAR VOLUME 96.6 fL (79-99); MONOCYTES % (AUTO) 2.6 % (3.0-13.0); NEUTROPHILS % (AUTO) 86.6 % (40.0-77.0); NUCLEATED RED BLOOD CELLS 6.5 % (0.0-0.19); PLATELET COUNT (AUTO) 116 K/uL (130-400); RED BLOOD CELL COUNT(AUTO) 2.62 MIL/uL (4.00-5.50); RED CELL DISTRIBUTION WIDTH 18.7 % (11.0-15.5); WHITE BLOOD COUNT (AUTO) 11.7 K/uL (4.8-10.8)
[2020-06-14 04:49] LABS: CREATININE 3.8 mg/dL (0.5-1.5); MAGNESIUM 1.8 mg/dL (1.80-2.40); POTASSIUM 3.6 mmol/L (3.5-5.1)
[2020-06-14 04:59] LABS: CRP QUANTITATIVE 473.3 mg/L (0.00-9.0); INR 1.14 (0.85-1.15); PARTIAL THROMBOPLASTIN TIME 31.5 SEC (26.3-35.5); PROTHROMBIN TIME 12.3 SEC (9.6-11.6)
[2020-06-14 05:41] LABS: ERYTHROCYTE SEDIMENTATION RATE 90 MM/HR (0-30)
[2020-06-14] MEDS: FENTANYL 2500MCG+NS 250ML 250 ML IV SCH ×2 (07:20→19:39)
[2020-06-14] MEDS: POLYETHYLENE GLYCOL 3350 17 GM POWD.PACK PO SCH (09:00)
[2020-06-14] MEDS: MUPIROCIN OINTMENT 22 GM TUBE TP SCH ×2 (09:00→22:02)
[2020-06-14] MEDS: PANTOPRAZOLE 40 MG/VIAL IVP SCH (09:00)
[2020-06-14] MEDS: CHLORHEXIDINE GLUCONATE 473 ML MOUTHWASH MM SCH ×2 (09:00→22:02)
[2020-06-14] MEDS ORDERED: SODIUM BICARB 50MEQ 50ML VIAL ONE (15:20)
[2020-06-14] MEDS: MIDAZOLAM 100MG-0.9% NS 100ML 100ML BAG IV SCH (19:39)
[2020-06-15] VITALS (58 sets, daily range): BP systolic 95–151; BP diastolic 52–73
[2020-06-15] MEDS: HEPARIN SODIUM 5000UNIT/ML 1ML VIAL SQ SCH ×3 (01:15→18:05)
[2020-06-15] MEDS: AMPICILLIN 2GM+NS 100ML 100 ML IV SCH ×3 (02:12→17:47)
[2020-06-15] MEDS: SODIUM BICARB 8.4% 50ML SYRING 200 MEQ in DEXTROSE 5%-WATER 800 ML IV SCH ×3 (02:13→17:47)
[2020-06-15] MEDS: ARTIFICIAL TEARS 3.5 GM OINTMENT OU SCH ×4 (03:15→22:58)
[2020-06-15] MEDS: FENTANYL 2500MCG+NS 250ML 250 ML IV SCH ×2 (05:57→19:40)
[2020-06-15] MEDS: MIDAZOLAM 100MG-0.9% NS 100ML 100ML BAG IV SCH ×2 (05:58→22:59)
[2020-06-15] MEDS: POLYETHYLENE GLYCOL 3350 17 GM POWD.PACK PO SCH (09:00)
[2020-06-15] MEDS: PANTOPRAZOLE 40 MG/VIAL IVP SCH (09:09)
[2020-06-15] MEDS: MUPIROCIN OINTMENT 22 GM TUBE TP SCH ×2 (09:09→22:58)
[2020-06-15] MEDS: CHLORHEXIDINE GLUCONATE 473 ML MOUTHWASH MM SCH ×2 (09:09→22:58)
[2020-06-15 09:53] LABS: HEMATOCRIT 24.1 % (36-48); MEAN CORPUSCULAR HEMOGLOBIN 29.6 pg (27.0-33.0); MEAN CORPUSCULAR HGB CONC 31.1 g/dL (32.0-36.0); MEAN CORPUSCULAR VOLUME 95.3 fL (79-99); NUCLEATED RED BLOOD CELLS 13.9 % (0.0-0.19); PLATELET COUNT (AUTO) 96 K/uL (130-400); RED BLOOD CELL COUNT(AUTO) 2.53 MIL/uL (4.00-5.50); RED CELL DISTRIBUTION WIDTH 19.4 % (11.0-15.5); WHITE BLOOD COUNT (AUTO) 8.2 K/uL (4.8-10.8)
[2020-06-15 10:11] LABS: ALBUMIN 0.7 g/dL (3.5-5.0); BAND NEUTROPHILS % (MANUAL) 13 % (0-2); BILIRUBIN,TOTAL 1.7 mg/dL (0.2-1.0); CREATININE 3.9 mg/dL (0.5-1.5); EOSINOPHILS % (MANUAL) 1 % (1-6); LYMPHOCYTES % (MANUAL) 25 % (22-44); MAGNESIUM 1.8 mg/dL (1.80-2.40); MAN.DIFF COMMENT-IMPRESSION MANUAL DIFFERENTIAL; MONOCYTES % (MANUAL) 6 % (2-9); PHOSPHORUS 4.9 mg/dL (2.5-4.9); PLATELET MORPHOLOGY COMMENT ADEQUATE; POTASSIUM 3.3 mmol/L (3.5-5.1); SEGMENTED NEUTROPHILS % 55 % (40-70); TOTAL PROTEIN, SERUM 3.9 g/dL (6.0-8.3)
[2020-06-15 12:56] LABS: ABG BASE EXCESS 10.8 mmol/L (-2.0-3.0); ABG HCO3 36.4 mmol/L (21.0-28.0); ABG OXYGEN SATURATION 87.9 % (95.0-99.0); ABG PCO2 56 mmHg (32-45)
[2020-06-16] VITALS (72 sets, daily range): BP systolic 82–152; BP diastolic 42–84
[2020-06-16] MEDS: HEPARIN SODIUM 5000UNIT/ML 1ML VIAL SQ SCH ×2 (01:51→08:24)
[2020-06-16] MEDS: FENTANYL 2500MCG+NS 250ML 250 ML IV SCH (01:52)
[2020-06-16] MEDS: AMPICILLIN 2GM+NS 100ML 100 ML IV SCH (01:52)
[2020-06-16] MEDS: SODIUM BICARB 8.4% 50ML SYRING 200 MEQ in DEXTROSE 5%-WATER 800 ML IV SCH ×4 (01:53→21:06)
[2020-06-16] MEDS: ARTIFICIAL TEARS 3.5 GM OINTMENT OU SCH ×4 (01:56→21:04)
[2020-06-16 03:28] LABS: CREATININE 3.8 mg/dL (0.5-1.5); MAGNESIUM 1.6 mg/dL (1.80-2.40); POTASSIUM 3.1 mmol/L (3.5-5.1)
[2020-06-16] MEDS ORDERED: POTASSIUM CHLORIDE 10% ELIXIR 20 MEQ/15 ML UDCUP PO PRN (03:45)
[2020-06-16] MEDS ORDERED: POTASSIUM CHLORIDE 20 MEQ ERTAB PO PRN (03:45)
[2020-06-16] MEDS ORDERED: LIDOCAINE HCL-MPF 1% 2ML VIAL IJ PRN (03:45)
[2020-06-16] MEDS ORDERED: POTASSIUM CHLORIDE 10MEQ/100ML 100 ML IV PRN (03:45)
[2020-06-16] MEDS: POTASSIUM CHLORIDE 10MEQ/100ML 10 MEQ/100 ML ML IV SCH (03:45)
[2020-06-16] MEDS ORDERED: MAGNESIUM 2GM PREMIX 50ML 50 ML IV PRN (03:45)
[2020-06-16] MEDS ORDERED: POTASSIUM CHLORIDE 20MEQ/100ML 100 ML IV ONE (03:47)
[2020-06-16] MEDS ORDERED: MAGNESIUM 2GM PREMIX 50ML 50 ML IV ONE (03:48)
[2020-06-16 05:04] LABS: BASOPHILS % (AUTO) 1.1 % (0.0-5.0); EOSINOPHILS % (AUTO) 0.2 % (0.0-8.0); HEMATOCRIT 21.9 % (36-48); LYMPHOCYTES % (AUTO) 14.2 % (21.0-51.0); MEAN CORPUSCULAR HEMOGLOBIN 30.3 pg (27.0-33.0); MEAN CORPUSCULAR HGB CONC 31.5 g/dL (32.0-36.0); MEAN CORPUSCULAR VOLUME 96.1 fL (79-99); MONOCYTES % (AUTO) 3.2 % (3.0-13.0); NEUTROPHILS % (AUTO) 78.2 % (40.0-77.0); NUCLEATED RED BLOOD CELLS 9.7 % (0.0-0.19); RED BLOOD CELL COUNT(AUTO) 2.28 MIL/uL (4.00-5.50); RED CELL DISTRIBUTION WIDTH 19.6 % (11.0-15.5); WHITE BLOOD COUNT (AUTO) 6.5 K/uL (4.8-10.8)
[2020-06-16 05:42] LABS: PLATELET COUNT (AUTO) 108 K/uL (130-400)
[2020-06-16 05:45] LABS: BAND NEUTROPHILS % (MANUAL) 29 % (0-2); LYMPHOCYTES % (MANUAL) 14 % (22-44); MAN.DIFF COMMENT-IMPRESSION MANUAL DIFFERENTIAL; METAMYELOCYTES % 2 % (0-0); MONOCYTES % (MANUAL) 7 % (2-9); PLATELET MORPHOLOGY COMMENT SLIGHTLY DECREASED; SEGMENTED NEUTROPHILS % 48 % (40-70)
[2020-06-16] MEDS: MIDAZOLAM 100MG-0.9% NS 100ML 100ML BAG IV SCH (06:38)
[2020-06-16] MEDS: CHLORHEXIDINE GLUCONATE 473 ML MOUTHWASH MM SCH ×2 (08:19→21:00)
[2020-06-16] MEDS: POLYETHYLENE GLYCOL 3350 17 GM POWD.PACK PO SCH (08:19)
[2020-06-16] MEDS: PANTOPRAZOLE 40 MG/VIAL IVP SCH (08:19)
[2020-06-16] MEDS: MUPIROCIN OINTMENT 22 GM TUBE TP SCH ×2 (08:23→21:03)
[2020-06-16] MEDS ORDERED: ATROPINE SULFATE 0.1 MG/ML 10 ML SYG IVP ONE (13:10)
[2020-06-16] MEDS: ROCURONIUM BROMIDE 250 MG in SODIUM CHLORIDE 0.9% 250 ML IV SCH (21:01)
[2020-06-16] MEDS: VASOPRESSIN 20 UNITS in SODIUM CHLORIDE 0.9% 100 ML IV SCH (21:02)
[2020-06-17] VITALS (93 sets, daily range): BP systolic 61–180; BP diastolic 35–86
[2020-06-17] MEDS: POTASSIUM CHLORIDE 10MEQ/100ML 10 MEQ/100 ML ML IV SCH (03:45)
[2020-06-17] MEDS: FENTANYL 2500MCG+NS 250ML 250 ML IV SCH (05:05)
[2020-06-17] MEDS: MIDAZOLAM 100MG-0.9% NS 100ML 100ML BAG IV SCH (05:06)
[2020-06-17 06:00] LABS: ABG BASE EXCESS 9.1 mmol/L (-2.0-3.0); ABG OXYGEN SATURATION 59.8 % (95.0-99.0); ABG PCO2 52 mmHg (32-45)
[2020-06-17] MEDS: SODIUM BICARB 8.4% 50ML SYRING 200 MEQ in DEXTROSE 5%-WATER 800 ML IV SCH ×2 (06:51→18:23)
[2020-06-17 07:01] LABS: BASOPHILS % (AUTO) 0.1 % (0.0-5.0); EOSINOPHILS % (AUTO) 0.4 % (0.0-8.0); HEMATOCRIT 33.6 % (36-48); LYMPHOCYTES % (AUTO) 6.7 % (21.0-51.0); MEAN CORPUSCULAR VOLUME 96.8 fL (79-99); MONOCYTES % (AUTO) 4.3 % (3.0-13.0); NEUTROPHILS % (AUTO) 86.3 % (40.0-77.0); NUCLEATED RED BLOOD CELLS 42.1 % (0.0-0.19); PLATELET COUNT (AUTO) 72 K/uL (130-400); RED BLOOD CELL COUNT(AUTO) 3.47 MIL/uL (4.00-5.50); RED CELL DISTRIBUTION WIDTH 20.7 % (11.0-15.5); WHITE BLOOD COUNT (AUTO) 7.9 K/uL (4.8-10.8)
--- NOTE | 2020-06-17 07:19 | NUR ---
SHIFT SUMMARY: [address] Monique @ pt bedside. Informed him that 1/2 later taken off pt during dialysis. Pt o2 sats droppped low 50's & HR low 30's ( Atropine placed @ bedside when being repositioned on 7a shift per Kenney 7a Rn. Approx 22:00 Spoke w/ daughter Flor updated her on pt status and above noted. Approx 0500 Pt o2 sats drop to 30's. Zoll pads place on patient after given partial bath. Pt weeping from all over... copious amount from skin 07: 00 phone daughter Flor of decline in pt's condition
[2020-06-17 07:20] LABS: ALBUMIN 0.7 g/dL (3.5-5.0); BILIRUBIN,TOTAL 2.4 mg/dL (0.2-1.0); CREATININE 3.1 mg/dL (0.5-1.5); MAGNESIUM 1.8 mg/dL (1.80-2.40); POTASSIUM 3.7 mmol/L (3.5-5.1); TOTAL PROTEIN, SERUM 4.7 g/dL (6.0-8.3)
[2020-06-17 08:26] LABS: BAND NEUTROPHILS % (MANUAL) 15 % (0-2); LYMPHOCYTES % (MANUAL) 17 % (22-44); MAN.DIFF COMMENT-IMPRESSION MANUAL DIFFERENTIAL; MONOCYTES % (MANUAL) 13 % (2-9); PLATELET MORPHOLOGY COMMENT DECREASED; SEGMENTED NEUTROPHILS % 55 % (40-70)
[2020-06-17] MEDS: POLYETHYLENE GLYCOL 3350 17 GM POWD.PACK PO SCH (09:08)
[2020-06-17] MEDS: CHLORHEXIDINE GLUCONATE 473 ML MOUTHWASH MM SCH ×2 (09:08→23:00)
[2020-06-17] MEDS: MUPIROCIN OINTMENT 22 GM TUBE TP SCH ×2 (09:08→21:00)
[2020-06-17] MEDS: PANTOPRAZOLE 40 MG/VIAL IVP SCH (09:08)
[2020-06-17] MEDS: ARTIFICIAL TEARS 3.5 GM OINTMENT OU SCH (21:15)
[2020-06-18] VITALS (16 sets, daily range): BP systolic 58–134; BP diastolic 22–63
[2020-06-18] MEDS: NOREPINEPHRINE BITARTRATE 32 MG in SODIUM CHLORIDE 0.9% 250 ML IV PRN (02:26)
[2020-06-18] MEDS: VASOPRESSIN 20 UNITS in SODIUM CHLORIDE 0.9% 100 ML IV SCH (02:27)
[2020-06-18] MEDS: ROCURONIUM BROMIDE 250 MG in SODIUM CHLORIDE 0.9% 250 ML IV SCH (02:29)
[2020-06-18] MEDS: SODIUM BICARB 8.4% 50ML SYRING 200 MEQ in DEXTROSE 5%-WATER 800 ML IV SCH ×2 (02:30→10:12)
[2020-06-18] MEDS: FENTANYL 2500MCG+NS 250ML 250 ML IV SCH (04:12)
[2020-06-18] MEDS: MIDAZOLAM 100MG-0.9% NS 100ML 100ML BAG IV SCH (04:47)
[2020-06-18 05:08] LABS: ABG BASE EXCESS -6.6 mmol/L (-2.0-3.0); ABG HCO3 22.8 mmol/L (21.0-28.0); ABG PCO2 62 mmHg (32-45)
[2020-06-18 06:30] LABS: HEMATOCRIT 34.8 % (36-48); MEAN CORPUSCULAR HEMOGLOBIN 30.3 pg (27.0-33.0); MEAN CORPUSCULAR HGB CONC 29.6 g/dL (32.0-36.0); MEAN CORPUSCULAR VOLUME 102.4 fL (79-99); NUCLEATED RED BLOOD CELLS 76.9 % (0.0-0.19); PLATELET COUNT (AUTO) 36 K/uL (130-400); RED CELL DISTRIBUTION WIDTH 21.8 % (11.0-15.5); WHITE BLOOD COUNT (AUTO) 14.8 K/uL (4.8-10.8)
[2020-06-18 08:10] LABS: CREATININE 3.4 mg/dL (0.5-1.5)
[2020-06-18] MEDS: POLYETHYLENE GLYCOL 3350 17 GM POWD.PACK PO SCH (10:13)
[2020-06-18] MEDS: CHLORHEXIDINE GLUCONATE 473 ML MOUTHWASH MM SCH (10:13)
[2020-06-18] MEDS: MUPIROCIN OINTMENT 22 GM TUBE TP SCH (10:13)
[2020-06-18] MEDS: PANTOPRAZOLE 40 MG/VIAL IVP SCH (10:13)
--- NOTE | 2020-06-18 11:20 | NUR ---
O2 SAT PT SPO2 IS NOT READING. PROBE ALTERNATED, STILL UNABLE TO GET A READING. NOTIFIED CASH PROCESSOR THAT WORKS WITH DR. AVILES. CASH PROCESSOR STATED THAT SHE WILL CONTACT DR. AVILES AND HAVE HIM CALL THE FAMILY. ALSO MADE CASH PROCESSOR AWARE THAT THE PT BLOOD PRESSURE ISN'T READING AND ALL OF THE PRESSERS ARE MAX OUT. NO NEW ORDERS GIVEN AT THIS TIME.
[2020-06-18 12:14] LABS: ABG BASE EXCESS -9.2 mmol/L (-2.0-3.0); ABG HCO3 19.2 mmol/L (21.0-28.0); ABG OXYGEN SATURATION 41.7 % (95.0-99.0); ABG PCO2 51 mmHg (32-45)
--- NOTE | 2020-06-18 15:14 | NUR ---
RD FOLLOW UP Pt with poor prognosis. Hemodialysis stopped as per EMR. Tube Feeding recommendations updated (Nepro goal 35mls/hr), despite poor prognosis. Recommendations faxed to Aditya RN notified. RD to continue to monitor.
== END 2020-06-18 16:04 | disposition expired | DRG 207 ==
LOC: EDH 09:40 → EDHIP 09:41 → 4CH 05-09 09:00 → 2CV 05-22 12:13
PROVIDERS: ADMIT Internal Medicine Critical Care Medicine; ATTEND Internal Medicine Critical Care Medicine
PROC: XW13325 Transfusion of Convalescent Plasma (Nonautologous) into Peripheral Vein, Percutaneous Approach, New Technology Group 5 (ICD-10-PCS; 2020-05-11)
PROC: XW033E5 Introduction of Remdesivir Anti-infective into Peripheral Vein, Percutaneous Approach, New Technology Group 5 (ICD-10-PCS; 2020-05-12)
PROC: XW033E5 Introduction of Remdesivir Anti-infective into Peripheral Vein, Percutaneous Approach, New Technology Group 5 (ICD-10-PCS; 2020-05-13)
PROC: 5A09357 Assistance with Respiratory Ventilation, Less than 24 Consecutive Hours, Continuous Positive Airway Pressure (ICD-10-PCS; 2020-05-22)
PROC: 5A09557 Assistance with Respiratory Ventilation, Greater than 96 Consecutive Hours, Continuous Positive Airway Pressure (ICD-10-PCS; 2020-05-23)
PROC: 5A1955Z Respiratory Ventilation, Greater than 96 Consecutive Hours (ICD-10-PCS; 2020-05-28)
PROC: 0BH17EZ Insertion of Endotracheal Airway into Trachea, Via Natural or Artificial Opening (ICD-10-PCS; 2020-05-28)
PROC: 5A1D70Z Performance of Urinary Filtration, Intermittent, Less than 6 Hours Per Day (ICD-10-PCS; principal; 2020-06-11)
PROC: 02H633Z Insertion of Infusion Device into Right Atrium, Percutaneous Approach (ICD-10-PCS; 2020-06-11)
PROC: B5181ZA Fluoroscopy of Superior Vena Cava using Low Osmolar Contrast, Guidance (ICD-10-PCS; 2020-06-11)
PROC: 5A1D70Z Performance of Urinary Filtration, Intermittent, Less than 6 Hours Per Day (ICD-10-PCS; 2020-06-16)
PROC: 30233N1 Transfusion of Nonautologous Red Blood Cells into Peripheral Vein, Percutaneous Approach (ICD-10-PCS; 2020-06-16)
PROC: 5A12012 Performance of Cardiac Output, Single, Manual (ICD-10-PCS; 2020-06-18)
DX: U07.1 COVID-19 (principal); J96.01 Acute respiratory failure with hypoxia; J12.89 Other viral pneumonia; G92 Toxic encephalopathy; K72.00 Acute and subacute hepatic failure without coma; N17.9 Acute kidney failure, unspecified; E87.0 Hyperosmolality and hypernatremia; E87.2 Acidosis; G62.81 Critical illness polyneuropathy; G72.81 Critical illness myopathy; Z66 Do not resuscitate; J84.10 Pulmonary fibrosis, unspecified; D64.9 Anemia, unspecified; D69.6 Thrombocytopenia, unspecified; E66.01 Morbid (severe) obesity due to excess calories; B95.2 Enterococcus as the cause of diseases classified elsewhere; E87.5 Hyperkalemia; E87.70 Fluid overload, unspecified; F41.9 Anxiety disorder, unspecified; I10 Essential (primary) hypertension; I46.9 Cardiac arrest, cause unspecified; K59.00 Constipation, unspecified; R56.9 Unspecified convulsions; Z68.37 Body mass index [BMI] 37.0-37.9, adult; Z74.01 Bed confinement status; Z79.899 Other long term (current) drug therapy; Z99.2 Dependence on renal dialysis
CPT/HCPCS: 31500; 36415; 36430; 36600; 70450; 71045; 71275; 74018; 76770; 80048; 80053; 80061; 80074; 80076; 80202; 81003; 82435; 82550; 82728; 82803; 82947; 82948; 83036; 83540; 83605; 83615; 83690; 83735; 83874; 83880; 83935; 84100; 84132; 84145; 84295; 84443; 84484; 84550; 85018; 85025; 85027; 85378; 85610; 85651; 85730; 86140; 86850; 86900; 86901; 86923; 86927; 87040; 87077; 87088; 87186; 87486; 87581; 87633; 87798; 90935; 92950; 93005; 94002; 94003; 94660; 99291; A4344; C1751; C1894; C9113; G0378; J0171; J0290; J0360; J0456; J0461; J0692; J0696; J1100; J1170; J1644; J1650; J1720; J1940; J2020; J2370; J2704; J2920; J3010; J3370; J3475; J3480; J3490; J7030; J7040; J7050; J7070; J7120; J8540; P9016; Q9967; U0003